=== PATIENT | male | born 1990 | race African-American/Black ===

== ENCOUNTER 2017-01-25 09:58 | Emergency (ER) | payer MEDICAID ==
[2017-01-25] MEDS ORDERED: DEXAMETHASONE 10 MG/ML VIAL PO STA (11:06)
[2017-01-25] MEDS ORDERED: CHERRY SYRUP 10 ML UDC PO ONE ×2 (11:20→11:23)
[2017-01-25] MEDS ORDERED: DEXAMETHASONE 10 MG/ML VIAL ONE ×2 (11:20→11:23)
== END 2017-01-25 11:26 | disposition home or self-care (01) ==
DX: S46.912A Strain of unspecified muscle, fascia and tendon at shoulder and upper arm level, left arm, initial encounter (principal); M62.838 Other muscle spasm; M54.5 Low back pain; X50.3XXA Overexertion from repetitive movements, initial encounter; Y93.89 Activity, other specified; Y92.410 Unspecified street and highway as the place of occurrence of the external cause; G82.20 Paraplegia, unspecified; Z99.3 Dependence on wheelchair
CPT/HCPCS: 99283; A9270

== ENCOUNTER 2018-03-05 10:04 | Emergency (ER) | payer MEDICAID ==
--- NOTE | 2018-03-05 12:44 | ED Physician Documentation ---
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 He is from [facility]. For the last 5 days without specific cause other than that he has had trouble sleeping and anxiety and palpitations and rapid thoughts keeping him up at night. He has a history of alcohol use, but not any year and a half. He also has been on a antidepressant in the past but is not currently. He has plans to see a therapist next week.) Review of Systems Constitutional: denies: Fever, Chills Cardiac: reports: Palpitations. denies: Chest pain / pressure Respiratory: reports: Dyspnea. denies: Cough GI: denies: Abdominal Pain PD PAST MEDICAL HISTORY - Past Medical History Cardiovascular: None Respiratory: None Neuro: Other Endocrine/Autoimmune: None GI: None : Incontinence, Chronic bladder infection HEENT: None Psych: Depression, Anxiety, Post traumatic stress disorder Musculoskeletal: Scoliosis, Chronic back pain Derm: Other drug resistant infections Other Past Medical History: Parapalegic - Past Surgical History Past Surgical History: Yes Ortho: Spine surgery - Present Medications Home Medications: Ambulatory Orders Medication Instructions Recorded Confirmed Wheelchair [Transport Chair] 1 each ONCE #1 each 02/12/15 01/25/17 Ibuprofen [Motrin] 800 mg PO Q8H PRN #30 tablet 10/03/16 01/25/17 Cyclobenzaprine [Flexeril] 10 mg PO TID PRN #20 tablet 01/25/17 HYDROcod/ACETAM 5/325 [[place] 5/325] 1 - 2 ea PO Q6H PRN #15 tablet 01/25/17 Lorazepam [Ativan] 1 mg PO TID PRN #15 tablet 03/05/18 - Allergies Allergies/Adverse Reactions: Allergies Allergy/AdvReac Type Severity Reaction Status Date / Time No Known Drug Allergies Allergy Verified 03/05/18 10:40 - Social History Does the pt smoke?: No Smoking Status: Never smoker Does the pt drink ETOH?: No Does the pt have substance abuse?: No - Immunizations Immunizations are current?: Yes - POLST Patient has POLST: No PD ED PE NORMAL - Vitals Vital signs reviewed: Yes (Unremarkable) - General General: Alert and oriented X 3, No acute distress, Other (He is paraplegic) - HEENT HEENT: PERRL, EOMI - Neck Neck: Supple, no meningeal sign, No bony TTP - Cardiac Cardiac: RRR, No murmur - Respiratory Respiratory: No respiratory distress, Clear bilaterally - Extremities Extremities: No edema, No calf tenderness / cord - Neuro Neuro: Alert and oriented X 3, Normal speech Results - Vitals Vitals: Vital Signs - 24 hr 03/05/18 10:36 Temperature 36.3 C L Heart Rate 88 Respiratory 16 Rate Blood Pressure 127/79 O2 Saturation 99 Oxygen O2 Source Room air - EKG (time done) 1250 Rate: Rate (enter#) (67) Rhythm: NSR [place]: Normal Intervals: Normal IA Ischemia: ST elevation c/w repol. No: ST elevation c/w ischemia Compare to prior EKG: Old EKG unavailable Computer interpretation: Agree with computer Departure - Departure Disposition: 01 Home, Self Care Clinical Impression: Anxiety Condition: Good Record reviewed to determine appropriate education?: Yes Instructions: ED Panic Attack Prescriptions: Lorazepam [Ativan] 1 mg PO TID PRN #15 tablet PRN Reason: Anxiety Comments: Call your doctor to arrange a follow-up appointment, make the next available appointment. In the interim, return anytime if worse or if new symptoms develop. Follow-up with [facility] at [phone] to schedule psychiatric care and counseling.
[2018-03-05 13:11] VITALS: BP 122/80
== END 2018-03-05 13:09 | disposition home or self-care (01) ==
LOC: ED 10:04
DX: F41.9 Anxiety disorder, unspecified (principal); R94.31 Abnormal electrocardiogram [ECG] [EKG]; G82.20 Paraplegia, unspecified
CPT/HCPCS: 93005; 99283; 99284

== ENCOUNTER 2018-04-08 10:43 | Outpatient (CLI) | payer MEDICAID ==
[2018-04-08 13:27] LABS: GLUCOSE, URINE (UA) NEGATIVE (NEGATIVE); KETONES,URINE (UA) TRACE mg/dL (NEGATIVE); LEUKOCYTE ESTERASE, URINE LARGE (NEGATIVE); NITRITE,URINE POSITIVE (NEGATIVE); OCCULT BLOOD,URINE MODERATE (NEGATIVE); PH,URINE 8.5 PH (5.0-7.5); PROTEIN,URINE 100 mg/dL (NEGATIVE); UROBILINOGEN,URINE 1 (NORMAL) E.U./dL (NORMAL)
[2018-04-08 14:20] LABS: BACTERIA,URINE Moderate /HPF (None Seen); BILIRUBIN,URINE NEGATIVE (NEGATIVE); CLARITY,URINE CLOUDY (CLEAR); ICTOTEST,URINE NEGATIVE; RBC,URINE TNTC /HPF (0-5); SQUAMOUS EPITHELIAL CELL,UR NONE SEEN (<= Few)
== END 2018-04-08 10:44 | disposition home or self-care (01) ==
LOC: LAB.R 10:43
PROVIDERS: ATTEND Family Medicine
DX: N30.01 Acute cystitis with hematuria (principal)
CPT/HCPCS: 81001; 87077; 87086

== ENCOUNTER → 2018-12-27 | Outpatient (CLI) | payer MEDICAID ==
[2018-12-27 19:29] LABS: BILIRUBIN,URINE NEGATIVE (NEGATIVE); GLUCOSE, URINE (UA) NEGATIVE (NEGATIVE); KETONES,URINE (UA) NEGATIVE (NEGATIVE); LEUKOCYTE ESTERASE, URINE LARGE (NEGATIVE); NITRITE,URINE NEGATIVE (NEGATIVE); OCCULT BLOOD,URINE LARGE (NEGATIVE); PH,URINE >=9.0 PH (5.0-7.5); PROTEIN,URINE >=300 mg/dL (NEGATIVE); UROBILINOGEN,URINE 0.2 (NORMAL) E.U./dL (NORMAL)
[2018-12-27 19:40] LABS: BACTERIA,URINE Rare /HPF (None Seen); CLARITY,URINE BLOODY (CLEAR); CRYSTALS,URINE 0-2 Triple Phosphate /LPF; MUCUS,URINE Marked Strands; RBC,URINE TNTC /HPF (0-5); SQUAMOUS EPITHELIAL CELL,UR NONE SEEN (<= Few)
== END ==
LOC: LAB.R 08:00
PROVIDERS: ATTEND Physician Assistant Medical
DX: I10 Essential (primary) hypertension (principal)
CPT/HCPCS: 81001; 87077; 87086; 87181

== ENCOUNTER 2019-02-24 15:33 | Outpatient (CLI) | payer MEDICAID | END 2019-02-24 15:34 | disposition critical access hospital (66) | LOC: EMS 15:33 | PROVIDERS: ATTEND Surgery | DX: R50.9 Fever, unspecified (principal); M54.5 Low back pain | CPT/HCPCS: A0425; A0429; A0999 ==

== ENCOUNTER 2019-02-24 15:54 | Inpatient (IN) | payer MEDICAID ==
[2019-02-24 16:41] LABS: ALBUMIN 3.9 g/dL (3.2-5.5); BILIRUBIN,TOTAL 0.8 mg/dL (0.2-1.0); CREATININE 0.4 mg/dL (0.6-1.2)
[2019-02-24 16:42] LABS: BASOPHILS % (AUTO) 0.5 %; EOSINOPHILS % (AUTO) 0.5 %; LYMPHOCYTES # (AUTO) 2.3 10^3/uL (1.5-3.5); LYMPHOCYTES % (AUTO) 29.9 %; MEAN CORPUSCULAR HEMOGLOBIN 15.8 pg (27.0-31.0); MEAN CORPUSCULAR HGB CONC 29.1 g/dL (32.0-36.0); MEAN CORPUSCULAR VOLUME 54.2 fL (80.0-94.0); MEAN PLATELET VOLUME 8.2 fL (7.4-11.4); MONOCYTES # (AUTO) 0.5 10^3/uL (0.0-1.0); NEUTROPHILS # (AUTO) 4.7 10^3/uL (1.5-6.6); NEUTROPHILS % (AUTO) 62.1 %; PLT - PLATELET COUNT 335 10^3/uL (130-450); RED BLOOD COUNT 3.97 10^6/uL (4.70-6.10); RED CELL DISTRIBUTION WIDTH 24.1 % (12.0-15.0); WHITE BLOOD COUNT 7.6 x10^3/uL (4.8-10.8)
--- NOTE | 2019-02-24 16:44 | ED Physician Documentation ---
PD HPI MALE - Stated complaint Stated Complaint: BED SORES - Chief complaint Chief Complaint: Fever - History obtained from History obtained from: Patient - History of Present Illness Timing - onset: How many days ago (noted some redness and ulceration left lateral hip just the past few days. Also feeling some chills and general malaise the past 1-2 days and noted some cloudiness of urine.) Timing - duration: Days Timing - details: Gradual onset, Still present Associated symptoms: Dysuria. No: Scrotal swelling Similar symptoms before: Diagnosis (had had ulcers that are slow healing; has not had new one for awhile. Has had occasional UTIs.) Recently seen: Not recently seen Review of Systems Constitutional: reports: Chills, Myalgias. denies: Fever Nose: denies: Rhinorrhea / runny nose, Congestion Throat: denies: Sore throat Cardiac: denies: Chest pain / pressure Respiratory: denies: Cough GI: reports: Nausea. denies: Abdominal Pain, Vomiting, Diarrhea : reports: Dysuria, Frequency Skin: denies: Rash, Lesions Neurologic: denies: Generalized weakness, Focal weakness, Numbness PD PAST MEDICAL HISTORY - Past Medical History Cardiovascular: None Respiratory: None Endocrine/Autoimmune: None GI: None : Incontinence, Chronic bladder infection HEENT: None Psych: Depression, Anxiety, Post traumatic stress disorder Musculoskeletal: Scoliosis, Chronic back pain Derm: Other drug resistant infections - Past Surgical History Past Surgical History: Yes Ortho: Spine surgery - Present Medications Home Medications: Ambulatory Orders Medication Instructions Recorded Confirmed No Known Home Medications 02/24/19 02/24/19 - Allergies Allergies/Adverse Reactions: Allergies Allergy/AdvReac Type Severity Reaction Status Date / Time No Known Drug Allergies Allergy Verified 03/05/18 10:40 - Social History Does the pt smoke?: No Smoking Status: Never smoker Does the pt drink ETOH?: No Does the pt have substance abuse?: No - Immunizations Immunizations are current?: Yes - POLST Patient has POLST: No PD ED PE NORMAL - Vitals Vital signs reviewed: Yes - General General: Alert and oriented X 3, No acute distress, Well developed/nourished - HEENT HEENT: Ears normal, Pharynx benign - Neck Neck: Supple, no meningeal sign, No adenopathy - Cardiac Cardiac: RRR, No murmur - Respiratory Respiratory: Clear bilaterally - Abdomen Abdomen: Soft, Non tender - Rectal Rectal: Other (brown soft stool in vault, guiac negative. ) - Back Back: No CVA TTP - Derm Derm: Warm and dry, Other (The left lateral hip at the trochanter shows an area of redness and inflammation with some fluctuance. There is a stage III ulcer about 2 cm diameter over that site. Patient has general leg wasting and muscle atrophy consistent with long-term paralysis. He has a chronic noninfected deep ulcer at the sacrum area with some thickened skin noted at the edge.) - Neuro Neuro: Alert and oriented X 3, Normal speech Results - Vitals Vitals: Vital Signs - 24 hr 02/24/19 02/24/19 02/24/19 16:19 17:26 18:10 Temperature 37.3 C Heart Rate 106 H 87 86 Respiratory 20 18 18 Rate Blood Pressure 138/71 H 116/70 121/68 O2 Saturation 100 100 100 Oxygen O2 Source Room air - Labs Labs: Laboratory Tests 02/24/19 02/24/19 02/24/19 16:03 16:20 16:20 WBC 7.6 RBC 3.97 L Hgb 6.3 L* Hct 21.5 L MCV 54.2 L MCH 15.8 L MCHC 29.1 L RDW 24.1 H Plt Count 335 MPV 8.2 Reticulocyte % (Auto) Neut # (Auto) 4.7 Lymph # (Auto) 2.3 [place] # (Auto) 0.5 Eos # (Auto) 0.0 Baso # (Auto) 0.0 Absolute Nucleated RBC 0.00 Nucleated RBC % 0.1 Manual Slide Review Indicated Platelet Estimate NORMAL (130-450,000) Platelet Morphology NORMAL APPEARANCE RBC Morph Micro Appear 1+ SCHISTOCYTES Absolute Retic Sodium 134 L Potassium 3.7 Chloride 102 Carbon Dioxide 21 Anion Gap 11.0 BUN 20 Creatinine 0.4 L Estimated GFR (MDRD) 308 Glucose 90 Lactic Acid Calcium 9.0 Iron TIBC Transferrin Ferritin Total Bilirubin 0.8 AST 16 ALT 13 Alkaline Phosphatase 55 Lactate Dehydrogenase Total Protein 8.0 Albumin 3.9 Globulin 4.1 Albumin/Globulin Ratio 1.0 Lipase 33 Vitamin B12 Urine Color BROWN Urine Clarity CLOUDY Urine pH 7.5 Ur Specific [place] 1.020 Urine Protein 100 H Urine Glucose (UA) NEGATIVE Urine Ketones NEGATIVE Urine Occult Blood LARGE H Urine Nitrite POSITIVE H Urine Bilirubin NEGATIVE Urine Urobilinogen 0.2 (NORMAL) Ur Leukocyte Esterase MODERATE H Urine RBC 11-25 H Urine WBC >25 H Urine WBC Clumps PRESENT Ur Squamous Epith Cells RARE Squamous Urine Crystals 3-5 Triple Phosphate Urine Bacteria Many H Urine Yeast PRESENT Ur Microscopic Review INDICATED Urine Culture Comments INDICATED Influenza A (Rapid) Influenza B (Rapid) Blood Type Antibody Screen Crossmatch IS Only 02/24/19 02/24/19 02/24/19 16:20 16:20 16:20 WBC RBC 3.99 L Hgb Hct MCV MCH MCHC RDW Plt Count MPV Reticulocyte % (Auto) 2.34 H Neut # (Auto) Lymph # (Auto) [place] # (Auto) Eos # (Auto) Baso # (Auto) Absolute Nucleated RBC Nucleated RBC % Manual Slide Review Platelet Estimate Platelet Morphology RBC Morph Micro Appear Absolute Retic 0.093 Sodium Potassium Chloride Carbon Dioxide Anion Gap BUN Creatinine Estimated GFR (MDRD) Glucose Lactic Acid 0.9 Calcium Iron < 6 L TIBC 386 Transferrin 276 Ferritin Total Bilirubin AST ALT Alkaline Phosphatase Lactate Dehydrogenase Total Protein Albumin Globulin Albumin/Globulin Ratio Lipase Vitamin B12 Urine Color Urine Clarity Urine pH Ur Specific [place] Urine Protein Urine Glucose (UA) Urine Ketones Urine Occult Blood Urine Nitrite Urine Bilirubin Urine Urobilinogen Ur Leukocyte Esterase Urine RBC Urine WBC Urine WBC Clumps Ur Squamous Epith Cells Urine Crystals Urine Bacteria Urine Yeast Ur Microscopic Review Urine Culture Comments Influenza A (Rapid) Influenza B (Rapid) Blood Type Antibody Screen Crossmatch IS Only 02/24/19 02/24/19 02/24/19 16:20 16:20 17:22 WBC RBC Hgb Hct MCV MCH MCHC RDW Plt Count MPV Reticulocyte % (Auto) Neut # (Auto) Lymph # (Auto) [place] # (Auto) Eos # (Auto) Baso # (Auto) Absolute Nucleated RBC Nucleated RBC % Manual Slide Review Platelet Estimate Platelet Morphology RBC Morph Micro Appear Absolute Retic Sodium Potassium Chloride Carbon Dioxide Anion Gap BUN Creatinine Estimated GFR (MDRD) Glucose Lactic Acid Calcium Iron TIBC Transferrin Ferritin 9.7 L Total Bilirubin AST ALT Alkaline Phosphatase Lactate Dehydrogenase 141 Total Protein Albumin Globulin Albumin/Globulin Ratio Lipase Vitamin B12 548 Urine Color Urine Clarity Urine pH Ur Specific [place] Urine Protein Urine Glucose (UA) Urine Ketones Urine Occult Blood Urine Nitrite Urine Bilirubin Urine Urobilinogen Ur Leukocyte Esterase Urine RBC Urine WBC Urine WBC Clumps Ur Squamous Epith Cells Urine Crystals Urine Bacteria Urine Yeast Ur Microscopic Review Urine Culture Comments Influenza A (Rapid) Negative Influenza B (Rapid) Negative Blood Type Antibody Screen Crossmatch IS Only 02/24/19 18:04 WBC RBC Hgb Hct MCV MCH MCHC RDW Plt Count MPV Reticulocyte % (Auto) Neut # (Auto) Lymph # (Auto) [place] # (Auto) Eos # (Auto) Baso # (Auto) Absolute Nucleated RBC Nucleated RBC % Manual Slide Review Platelet Estimate Platelet Morphology RBC Morph Micro Appear Absolute Retic Sodium Potassium Chloride Carbon Dioxide Anion Gap BUN Creatinine Estimated GFR (MDRD) Glucose Lactic Acid Calcium Iron TIBC Transferrin Ferritin Total Bilirubin AST ALT Alkaline Phosphatase Lactate Dehydrogenase Total Protein Albumin Globulin Albumin/Globulin Ratio Lipase Vitamin B12 Urine Color Urine Clarity Urine pH Ur Specific [place] Urine Protein Urine Glucose (UA) Urine Ketones Urine Occult Blood Urine Nitrite Urine Bilirubin Urine Urobilinogen Ur Leukocyte Esterase Urine RBC Urine WBC Urine WBC Clumps Ur Squamous Epith Cells Urine Crystals Urine Bacteria Urine Yeast Ur Microscopic Review Urine Culture Comments Influenza A (Rapid) Influenza B (Rapid) Blood Type A POSITIVE Antibody Screen NEGATIVE Crossmatch IS Only See Detail Procedures - Abscess I&D (location) left hip Preparation: Confirmed with ultrasound (He has a 2 cm area of stage III decubitus ulcer. There is some fluctuant area however and a small point of drainage with clear yellow to cloudy fluid. Ultrasound shows some fluid collection under the skin.), Lidocaine 1%, With epi Incision: Incised with scalpel, Purulent drainage (It was turbid yellow fluid and not adam pus.), Irrigated, Culture obtained. No: Packed Other: Pt tolerated well PD MEDICAL DECISION MAKING - ED course Complexity details: reviewed results (He has profound anemia with a hemoglobin of 6.5. His indices show likely severe iron deficiency. He states he does get some hematuria occasionally in particular with infections. He denies any melena. He is guaiac negative on rectal exam. He is low enough to need transfusion however.), re-evaluated patient (He has several processes going on. Primarily is signs of infection with a feeling of chills. He does have a UTI. He also has a pressure ulcer on the left lateral hip with some abscess formation under it which is incised and drained here in the ER. Both of these could be the cause of the general chills feeling. He is given ceftriaxone and Bactrim as treatment for both. He does have the significant anemia and will transfuse a couple of units of blood. This is likely iron deficiency. There may be some mild chronic blood loss with hematuria. There is no apparent GI loss.), considered differential, d/w patient Departure - Departure Disposition: [facility] DC/Xfer Clinical Impression: Wound abscess, Severe anemia Decubitus ulcer, hip Qualifiers: Pressure injury stage: unstageable Laterality: left Qualified Code(s): L89.220 - Pressure ulcer of left hip, unstageable Fatigue Qualifiers: Fatigue type: unspecified Qualified Code(s): R53.83 - Other fatigue UTI (urinary tract infection) Qualifiers: Urinary tract infection type: acute cystitis Hematuria presence: with hematuria Qualified Code(s): N30.01 - Acute cystitis with hematuria Condition: Stable Record reviewed to determine appropriate education?: Yes Discharge Date/Time: 02/24/19 19:56
[2019-02-24 16:50] LABS: HGB - HEMOGLOBIN 6.3 g/dL (14.0-18.0)
[2019-02-24 17:40] LABS: BILIRUBIN,URINE NEGATIVE (NEGATIVE); GLUCOSE, URINE (UA) NEGATIVE (NEGATIVE); KETONES,URINE (UA) NEGATIVE (NEGATIVE); LEUKOCYTE ESTERASE, URINE MODERATE (NEGATIVE); NITRITE,URINE POSITIVE (NEGATIVE); OCCULT BLOOD,URINE LARGE (NEGATIVE); PH,URINE 7.5 PH (5.0-7.5); PROTEIN,URINE 100 mg/dL (NEGATIVE); UROBILINOGEN,URINE 0.2 (NORMAL) E.U./dL (NORMAL)
[2019-02-24] MEDS ORDERED: SULFAMETH/TRIMETH DS 800/160 MG TABLET PO STA (17:49)
[2019-02-24] MEDS ORDERED: cefTRIAXone 1 GM VIAL IVP STA (17:49)
[2019-02-24 17:50] LABS: CLARITY,URINE CLOUDY (CLEAR)
[2019-02-24 17:53] LABS: BACTERIA,URINE Many /HPF (None Seen); CRYSTALS,URINE 3-5 Triple Phosphate /LPF; SQUAMOUS EPITHELIAL CELL,UR RARE Squamous (<= Few); WBC CLUMPS,URINE PRESENT; YEAST,URINE PRESENT
[2019-02-24 18:09] LABS: PLATELET ESTIMATE, MANUAL NORMAL (130-450,000) (NORMAL); PLATELET MORPHOLOGY NORMAL APPEARANCE (NORMAL)
[2019-02-24 18:11] LABS: ABSOLUTE RETICS # AUTO 0.093 10^6/uL (0.020-0.110); MEAN RETIC VALUE 95.1; RED BLOOD COUNT 3.99 10^6/uL (4.70-6.10)
[2019-02-24] MEDS ORDERED: SODIUM CHLORIDE 0.9% 1,000 ML IV ONE (18:22)
[2019-02-24 18:30] LABS: FERRITIN 9.7 ng/mL (23.9-336.2)
[2019-02-24 19:56] LABS: IRON < 6 ug/dL (45-182); TOTAL IRON BINDING CAPACITY 386 ug/dL (250-450); TRANSFERRIN 276 mg/dL (180-329)
[2019-02-24] MEDS: HYDROcod/ACETAM 5/325 MG TABLET PO PRN (21:10)
--- NOTE | 2019-02-24 22:44 | HISTORY & PHYSICAL EXAMINATION ---
Chief Complaint - Chief Complaint Chief Complaint: left hip pain, feverish History of Present Illness - Admitted From Admitted From:: [facility] ED - History Obtained From Records Reviewed: yes History obtained from: patient, chart, ED physician - History of Present Illness HPI Comment/Other: Patient is a 28 y/o male who is paraplegic and presents to the ED with complain of new onset right hip pain and feeling feverish. He resides at [facility] where his temperature was noted to be 101F. He has chronic unstageable sacral decubitus ulcer on the right which appears to be tracking. He has had this since 2004. However the soreness on the right is new. In the ED about 4-5 cc of cloudy fluid which had a smell to it was aspirated from the hip and sent for culture. Further work up included a UA which was highly suggestive of an infection. He was also found to have a hemoglobin of 6 with a previous reading of 14. He reports blood in his urine lately for which he saw his PCP. He was guaiac negative in the ED. He denies chest pain, GA, abd pain, nausea or vomiting. His lower extremities are atrophic. He gets around using a wheelchair after t ransferring using a paraslider. He is paraplegic from a surgical complication to remove a spinal tumor done in his home country of [facility]. History - Past Medical History Cardiovascular: reports: None Respiratory: reports: None Endocrine/Autoimmune: reports: None GI: reports: Other : reports: Incontinence, Chronic bladder infection HEENT: reports: None Psych: reports: Depression, Anxiety, Post traumatic stress disorder Musculoskeletal: reports: Scoliosis, Chronic back pain Derm: reports: Other drug resistant infections MRSA Hx?: Yes Other Past Medical History: Incontience, paraplegic - Past Surgical History Ortho: reports: Spine surgery - POLST Patient has POLST: No Meds/Allgy - Home Medications Home Medications: Ambulatory Orders Medication Instructions Recorded Confirmed No Known Home Medications 02/24/19 02/24/19 - Allergies Allergies/Adverse Reactions: Allergies Allergy/AdvReac Type Severity Reaction Status Date / Time No Known Drug Allergies Allergy Verified 03/05/18 10:40 Review of Systems - Constitutional Constitutional: reports: Fever. denies: Malaise, Weakness, Poor appetite, Ling phoresis - Eyes Eyes: denies: Blurred vision, Vision loss, Dipolpia - Ears, Nose & Throat Ears, Nose & Throat: denies: Nasal pain, Nasal discharge, Sore throat, Hoarseness - Cardiovascular Cariovascular: denies: Irregular heart rate, Chest pain, Edema - Respiratory Respiratory: denies: Cough, Wheezing, SOB at rest, SOB with exertion - Gastrointestinal Gastrointestinal: denies: Abdominal pain, Change in bowel habits, Rectal bleeding, Nausea, Vomiting - Genitourinary Genitourinary: reports: Hematuria, Incontinence. denies: Dysuria, Frequency, Urgency, Flank pain - Musculoskeletal Musculoskeletal: reports: Back pain (chronic), Other (right hip pain) - Integumentary Integumentary: reports: Lesions (sacral decubitus ulcers). denies: Rash, Pruritis - Neurological Neurological: reports: Other (paraplegic) - Psychiatric Psychiatric: reports: Depression, Anxiety - Hematologic/Lymphatic Hematologic/Lymphatic: reports: Anemia. denies: Bruising, Petechiae Prior Level of Functionality: Resides at [facility]. Patient is paraplegic. Gets around using a wheelchair. Transfers unto chair with a paraslider Exam - Vital Signs Vital Signs: Vital Signs x48h Temp Pulse Pulse Resp BP BP Pulse Ox 02/24/19 21:51 37.4 C 94 15 121/79 02/24/19 21:37 36.9 C 93 16 120/71 02/24/19 20:00 37 C 89 18 124/74 99 02/24/19 19:08 36.6 C 94 16 119/71 100 02/24/19 18:10 86 18 121/68 100 02/24/19 17:26 87 18 116/70 100 02/24/19 16:19 37.3 C 106 H 20 138/71 H 100 - Physical Exam General Appearance: positive: Alert, Moderate distress Eyes Bilateral: positive: Normal inspection, PERRL, EOMI. negative: Conjunctivae nml, No scleral icterus ENT: positive: ENT inspection nml, No signs of dehydration Neck: positive: Nml inspection, No JVD, Trachea midline Respiratory: positive: Chest non-tender, No respiratory distress, Breath sounds nml. negative: Wheezes, Rales, Rhonchi Cardiovascular: positive: Regular rate & rhythm, No murmur, No gallop Abdomen: positive: Non-tender, No organomegaly, Nml bowel sounds Rectal: positive: Stool - heme NEG. negative: Black stool Back: positive: Other (scoliosis with evidence of previous surgery) Skin: positive: Color nml, No rash, Warm (unstageable), Decubitus Extremities: positive: Other (atrophic 2/2 paraplegia) Neurologic/Psychiatric: positive: Oriented x3, Other (paraplegic) Sepsis Event Note (H) - Evaluation Current Stage of Sepsis: Sepsis Possible source of Sepsis: positive: Genitourinary, Skin/soft tissue Conclusion/Plan - Problem List (1) Abscess of right hip Conclusion/Plan: s/p drainage with cultures sent Patient started on bactrim DS. Will continue (2) Decubitus ulcer, hip Qualifiers: Pressure injury stage: unstageable Laterality: left Qualified Code(s): L89.220 - Pressure ulcer of left hip, unstageable (3) UTI (urinary tract infection) Conclusion/Plan: Hx of frequent infections Urine culture pending Patient on rocephin Qualifiers: Urinary tract infection type: site unspecified Hematuria presence: with hematuria Qualified Code(s): N39.0 - Urinary tract infection, site not specified; R31.9 - Hematuria, unspecified (4) Severe anemia Conclusion/Plan: Asymptomatic. Suspect Iron Deficiency Anemia Given microcytic and hypochromic Guaiac negative 2 units PRBC being transfused Will place patient on iron supplements upon discharge If anemia persists, patient may need further work up outpatient (5) Chronic back pain Conclusion/Plan: From scoliosis [place] and morphine ordered for pain management - Lab Results Fish Bones: 02/24/19 16:20 02/24/19 16:20
[2019-02-24] MEDS: SODIUM CHLORIDE FLUSH 0.9% 10 ML SYRINGE IVP SCH (22:52)
[2019-02-24] MEDS: MORPHINE 2 MG/ML SYRINGE IVP PRN (22:52)
[2019-02-25] MEDS: HYDROcod/ACETAM 5/325 MG TABLET PO PRN ×3 (01:18→12:12)
[2019-02-25] MEDS: SODIUM CHLORIDE FLUSH 0.9% 10 ML SYRINGE IVP PRN ×2 (04:18→23:59)
[2019-02-25] MEDS: MORPHINE 2 MG/ML SYRINGE IVP PRN ×3 (04:18→19:48)
[2019-02-25 06:30] LABS: BASOPHILS % (AUTO) 0.7 %; EOSINOPHILS % (AUTO) 0.5 %; HGB - HEMOGLOBIN 8.8 g/dL (14.0-18.0); MEAN CORPUSCULAR HGB CONC 30.4 g/dL (32.0-36.0); MEAN CORPUSCULAR VOLUME 62.7 fL (80.0-94.0); MEAN PLATELET VOLUME 8.2 fL (7.4-11.4); MONOCYTES % (AUTO) 6.8 %; PLT - PLATELET COUNT 284 10^3/uL (130-450); RED CELL DISTRIBUTION WIDTH 32.1 % (12.0-15.0)
[2019-02-25 06:31] LABS: CALCIUM 8.7 mg/dL (8.5-10.3); CREATININE 0.4 mg/dL (0.6-1.2)
[2019-02-25] MEDS: SODIUM CHLORIDE FLUSH 0.9% 10 ML SYRINGE IVP SCH ×3 (07:45→19:48)
[2019-02-25] MEDS: PANTOPRAZOLE 40 MG VIAL IVP SCH (07:45)
[2019-02-25 07:51] LABS: ABNORMAL LYMPHS % (MANUAL) 0 %
[2019-02-25 07:53] LABS: BAND NEUTROPHILS % (MANUAL) 2 %; BASOPHILS # (MANUAL) 0.1 10^3/uL (0-0.1); BASOPHILS % (MANUAL) 1 %; LYMPHOCYTES # (MANUAL) 0.9 10^3/uL (1.5-3.5); LYMPHOCYTES % (MANUAL) 10 %; MONOCYTES # (MANUAL) 0.6 10^3/uL (0.0-1.0); NEUTROPHILS # (MANUAL) 7.4 10^3/uL (1.5-6.6); NEUTROPHILS % (MANUAL) 80 %
[2019-02-25 07:57] LABS: DIFFERENTIAL COMMENT MANUAL DIFFERENTIAL; PLATELET ESTIMATE, MANUAL NORMAL (130-450,000) (NORMAL); PLATELET MORPHOLOGY 1+ GIANT PLATELETS (NORMAL)
[2019-02-25] MEDS ORDERED: SODIUM CHLORIDE 0.9% 500 ML IV ONE (08:22)
[2019-02-25] MEDS: POLYETHYLENE GLYCOL 3350 17 GM PACKET PO SCH (08:22)
[2019-02-25] MEDS: cefTRIAXone 1 GM in SODIUM CHLORIDE 0.9% MINIBAG 100 ML IV SCH (08:23)
[2019-02-25] MEDS ORDERED: SULFAMETH/TRIMETH DS 800/160 MG TABLET PO SCH (09:00)
[2019-02-25] MEDS: FERROUS GLUCONATE 324 MG TABLET PO SCH (10:24)
--- NOTE | 2019-02-25 13:15 | PROVIDER PROGRESS NOTE ---
Assessment/Plan - Problem List (1) Decubitus ulcer, hip Qualifiers: Pressure injury stage: unstageable Laterality: left Qualified Code(s): L89.220 - Pressure ulcer of left hip, unstageable Assessment/Plan: Fever today. The wound fluid, which was taken yesterday by the ER MD, is growing Staph aureus, unknown if it is MRSA or not. He was put on empiric po Bacrim by admitting Front End Ui Developer. I will change to iv Clindamycin. Wound consult needed for advice. (2) Infection due to Staphylococcus aureus Assessment/Plan: As above. (3) Dermal sinus tract of lumbosacral region Assessment/Plan: He had an old decubitus ulcer of R hip, that has developed a sinus tract that has epithelialized, but the surrounding skin has some sloughing. Will request a wound consult for this hip site as well. (4) UTI (urinary tract infection), bacterial Assessment/Plan: Had a fever today. Gram neg are growing in UTI, per the gram stain. await culture resukts and MICs. Currently he is on Ceftriaxone iv for this. Will need a 3 week course. Will do abdominal imaging to evaluate for pyelonephritis or stones. (5) Microcytic hypochromic anemia Assessment/Plan: He received transfusion of 2 Units PRBCs and Hgb has improved to 8.8. Stool was heme neg in ER. The serum results, taken before blood transfusion was started, shows severe Iron deficiency. Will begin oral Iron replacement. Follow CBC daily. (6) Paraplegic spinal paralysis Assessment/Plan: Chronic condition. The patient has requested more help atn the facility and an electric wheelchair. This was passed on to Coil Inspector. - Current Meds Current Meds: Current Medications Generic Name Dose Route Start Last Admin Trade Name Freq PRN Reason Stop Dose Admin Hydrocodone Bitart/Acetaminophen 1 tab 02/24/19 20:31 02/25/19 12:12 [place] 5/325 PO 1 tab Q4HR PRN Administration Pain 5 to 7 Ferrous Gluconate 324 mg 02/25/19 09:00 02/25/19 10:24 Fergon PO 324 mg DAILYWM WILFRID Administration Ceftriaxone Sodium 1 gm/ 100 mls @ 200 mls/hr 02/25/19 09:00 02/25/19 09:00 Sodium Chloride IV Infused DAILY WILFRID Infusion Morphine Sulfate 2 mg 02/24/19 22:07 02/25/19 07:45 Morphine IVP 2 mg Q3H PRN Administration PAIN Pantoprazole Sodium 40 mg 02/25/19 07:00 02/25/19 07:45 Protonix IVP 40 mg QDAC WILFRID Administration Polyethylene Glycol 17 gm 02/25/19 09:00 02/25/19 08:22 Miralax PO 17 gm DAILY WILFRID Administration Sodium Chloride 10 ml 02/24/19 20:31 02/25/19 04:18 Normal Saline Flush 0.9% IVP 10 ml PRN PRN Administration NEEDED PER PROVIDER ORDERS Sodium Chloride 10 ml 02/25/19 01:00 02/25/19 07:45 Normal Saline Flush 0.9% IVP 10 ml 0100,0900,1700 WILFRID Administration Trimethoprim/Sulfamethoxazole 1 tab 02/25/19 09:00 02/25/19 08:23 Bactrim Ds 800/160 PO 1 tab BID WILFRID Administration - Lab Result Fish Bone Diagrams: 02/25/19 06:10 02/25/19 06:10 - Additional Planning My Orders: My Active Orders 02/24/19 19:50 CULTURE, BLOOD #1 [RM] Stat 02/24/19 Dinner DIET [Regular Diet] [DIET] 02/25/19 09:00 Ferrous Gluconate [Fergon] 324 mg PO DAILYWM 02/25/19 13:12 Acetaminophen [Tylenol] 650 mg PO Q4HR PRN Subjective - Subjective Patient Reports: Feeling Better, Resting Comfortably Nursing Reports: Other (Fever to 102.3 F today) Objective Vital Signs: Vital Signs - 24 hr 02/24/19 02/24/19 02/24/19 16:19 17:26 18:10 Temperature 37.3 C Heart Rate 106 H 87 86 Heart Rate [ Monitoring electrodes] Respiratory 20 18 18 Rate Blood Pressure 138/71 H 116/70 121/68 Blood Pressure [Right Brachial artery] O2 Saturation 100 100 100 02/24/19 02/24/19 02/24/19 19:08 20:00 20:50 Temperature 36.6 C 37 C 37.3 C Heart Rate 94 89 Heart Rate [ 89 Monitoring electrodes] Respiratory 16 18 18 Rate Blood Pressure 119/71 Blood Pressure 124/74 [Right Brachial artery] O2 Saturation 100 99 100 02/24/19 02/24/1902/24/19 21:37 21:51 23:00 Temperature 36.9 C 37.4 C 37.3 C Heart Rate 93 94 Heart Rate [ 97 Monitoring electrodes] Respiratory 16 15 17 Rate Blood Pressure 120/71 121/79 Blood Pressure 120/79 [Right Brachial artery] O2 Saturation 02/25/19 02/25/19 02/25/19 00:00 01:00 01:13 Temperature 37.3 C 37.3 C Heart Rate 84 84 Heart Rate [ 87 Monitoring electrodes] Respiratory 15 14 14 Rate Blood Pressure 106/62 106/62 Blood Pressure 106/67 [Right Brachial artery] O2 Saturation 02/25/19 02/25/19 02/25/19 01:28 04:40 04:43 Temperature 37.1 C 37.3 C 37.3 C Heart Rate 75 82 Heart Rate [ 86 Monitoring electrodes] Respiratory 15 16 15 Rate Blood Pressure 101/70 108/76 Blood Pressure 108/76 [Right Brachial artery] O2 Saturation 100 02/25/19 02/25/19 07:39 12:07 Temperature 37.5 C 102.3 C H Heart Rate Heart Rate [ 90 106 H Monitoring electrodes] Respiratory 20 16 Rate Blood Pressure Blood Pressure 96/54 L 95/56 L [Right Brachial artery] O2 Saturation 100 100 Oxygen O2 Source Room air I&O (Last 24 Hrs): Intake and Output Totals x24h 02/23/19 02/24/19 02/25/19 23:59 23:59 23:59 Intake Total 0 1870 Balance 0 1870 General: Alert, Oriented x3 HEENT: Mucous membr. moist/pink Neck: Supple Neuro: Other (Paraplegic) Cardiovascular: Regular rate Respiratory: No respiratory distress Abdomen: Other (Pt was laying on his stomach, abd not examined) Extremities: Other ([place] covered) - Results Results: Laboratory Results WBC 9.0 x10^3/uL (4.8-10.8) 02/25/19 06:10 RBC 4.60 10^6/uL (4.70-6.10) L 02/25/19 06:10 Hgb 8.8 g/dL (14.0-18.0) L 02/25/19 06:10 Hct 28.8 % (42.0-52.0) L 02/25/19 06:10 MCV 62.7 fL (80.0-94.0) L 02/25/19 06:10 MCH 19.0 pg (27.0-31.0) L 02/25/19 06:10 MCHC 30.4 g/dL (32.0-36.0) L 02/25/19 06:10 RDW 32.1 % (12.0-15.0) H 02/25/19 06:10 Plt Count 284 10^3/uL (130-450) 02/25/19 06:10 MPV 8.2 fL (7.4-11.4) 02/25/19 06:10 Reticulocyte % (Auto) 2.34 % (0.5-2.3) H 02/24/19 16:20 Neut # (Auto) Not Reportable 02/25/19 06:10 Lymph # (Auto) Not Reportable 02/25/19 06:10 [place] # (Auto) Not Reportable 02/25/19 06:10 Eos # (Auto) Not Reportable 02/25/19 06:10 Baso # (Auto) Not Reportable 02/25/19 06:10 Absolute Nucleated RBC Not Reportable 02/25/19 06:10 Total Counted 100 02/25/19 06:10 Band Neuts % (Manual) 2 % (0-10) 02/25/19 06:10 Abnorm Lymph % (Manual) 0 % 02/25/19 06:10 Nucleated RBC % Not Reportable 02/25/19 06:10 Neutrophils # (Manual) 7.4 10^3/uL (1.5-6.6) H 02/25/19 06:10 Lymphocytes # (Manual) 0.9 10^3/uL (1.5-3.5) L 02/25/19 06:10 Monocytes # (Manual) 0.6 10^3/uL (0.0-1.0) 02/25/19 06:10 Eosinophils # (Manual) 0.0 10^3/uL (0-0.7) 02/25/19 06:10 Basophils # (Manual) 0.1 10^3/uL (0-0.1) 02/25/19 06:10 Differential Comment MANUAL DIFFERENTIAL 02/25/19 06:10 Manual Slide Review Indicated 02/25/19 06:10 WBC Morphology NORMAL APPEARANCE (NORMAL) 02/25/19 06:10 Platelet Estimate NORMAL (130-450,000) (NORMAL) 02/25/19 06:10 Platelet Morphology 1+ GIANT PLATELETS (NORMAL) 02/25/19 06:10 RBC Morph Micro Appear 3+ ANISOCYTOSIS (NORMAL) 2+ POIKILOCYTOSIS (NORMAL) 3+ HYPOCHROMASIA (NORMAL) 2+ MICROCYTOSIS (NORMAL) 1+ TEARDROP CELLS (NORMAL) 1+ OVALOCYTES (NORMAL) 1+ SCHISTOCYTES (NORMAL) 02/24/19 16:20 RBC Morph Micro Appear 3+ ANISOCYTOSIS (NORMAL) 2+ POIKILOCYTOSIS (NORMAL) 3+ HYPOCHROMASIA (NORMAL) 2+ MICROCYTOSIS (NORMAL) 1+ TEARDROP CELLS (NORMAL) 1+ OVALOCYTES (NORMAL) 1+ SCHISTOCYTES (NORMAL) 02/24/19 16:20 RBC Morph Micro Appear 3+ ANISOCYTOSIS (NORMAL) 2+ POIKILOCYTOSIS (NORMAL) 3+ HYPOCHROMASIA (NORMAL) 2+ MICROCYTOSIS (NORMAL) 1+ TEARDROP CELLS (NORMAL) 1+ OVALOCYTES (NORMAL) 1+ SCHISTOCYTES (NORMAL) 02/24/19 16:20 RBC Morph Micro Appear 3+ ANISOCYTOSIS (NORMAL) 2+ POIKILOCYTOSIS (NORMAL) 3+ HYPOCHROMASIA (NORMAL) 2+ MICROCYTOSIS (NORMAL) 1+ TEARDROP CELLS (NORMAL) 1+ OVALOCYTES (NORMAL) 1+ SCHISTOCYTES (NORMAL) 02/24/19 16:20 RBC Morph Micro Appear 3+ ANISOCYTOSIS (NORMAL) 2+ POIKILOCYTOSIS (NORMAL) 3+ HYPOCHROMASIA (NORMAL) 2+ MICROCYTOSIS (NORMAL) 1+ TEARDROP CELLS (NORMAL) 1+ OVALOCYTES (NORMAL) 1+ SCHISTOCYTES (NORMAL) 02/24/19 16:20 RBC Morph Micro Appear 3+ ANISOCYTOSIS (NORMAL) 2+ POIKILOCYTOSIS (NORMAL) 3+ HYPOCHROMASIA (NORMAL) 2+ MICROCYTOSIS (NORMAL) 1+ TEARDROP CELLS (NORMAL) 1+ OVALOCYTES (NORMAL) 1+ SCHISTOCYTES (NORMAL) 02/24/19 16:20 RBC Morph Micro Appear 3+ ANISOCYTOSIS (NORMAL) 2+ HYPOCHROMASIA (NORMAL) 2+ MICROCYTOSIS (NORMAL) 1+ POLYCHROMASIA (NORMAL) 02/25/19 06:10 RBC Morph Micro Appear 3+ ANISOCYTOSIS (NORMAL) 2+ HYPOCHROMASIA (NORMAL) 2+ MICROCYTOSIS (NORMAL) 1+ POLYCHROMASIA (NORMAL) 02/25/19 06:10 RBC Morph Micro Appear 3+ ANISOCYTOSIS (NORMAL) 2+ HYPOCHROMASIA (NORMAL) 2+ MICROCYTOSIS (NORMAL) 1+ POLYCHROMASIA (NORMAL) 02/25/19 06:10 RBC Morph Micro Appear 3+ ANISOCYTOSIS (NORMAL) 2+ HYPOCHROMASIA (NORMAL) 2+ MICROCYTOSIS (NORMAL) 1+ POLYCHROMASIA (NORMAL) 02/25/19 06:10 Absolute Retic 0.093 10^6/uL (0.020-0.110) 02/24/19 16:20 Sodium 136 mmol/L (135-145) 02/25/19 06:10 Potassium 3.8 mmol/L (3.5-5.0) 02/25/19 06:10 Chloride 104 mmol/L (101-111) 02/25/19 06:10 Carbon Dioxide 21 mmol/L (21-32) 02/25/19 06:10 Anion Gap 11.0 (6-13) 02/25/19 06:10 BUN 14 mg/dL (6-20) 02/25/19 06:10 Creatinine 0.4 mg/dL (0.6-1.2) L 02/25/19 06:10 Estimated GFR (MDRD) 308 (>89) 02/25/19 06:10 Glucose 84 mg/dL (70-100) 02/25/19 06:10 Lactic Acid 0.9 mmol/L (0.5-2.2) 02/24/19 16:20 Calcium 8.7 mg/dL (8.5-10.3) 02/25/19 06:10 Iron < 6 ug/dL (45-182) L 02/24/19 16:20 TIBC 386 ug/dL (250-450) 02/24/19 16:20 Transferrin 276 mg/dL (180-329) 02/24/19 16:20 Ferritin 9.7 ng/mL (23.9-336.2) L 02/24/19 16:20 Total Bilirubin 0.8 mg/dL (0.2-1.0) 02/24/19 16:20 AST 16 IU/L (10-42) 02/24/19 16:20 ALT 13 IU/L (10-60) 02/24/19 16:20 Alkaline Phosphatase 55 IU/L (42-121) 02/24/19 16:20 Lactate Dehydrogenase 141 IU/L (91-225) 02/24/19 16:20 Total Protein 8.0 g/dL (6.7-8.2) 02/24/19 16:20 Albumin 3.9 g/dL (3.2-5.5) 02/24/19 16:20 Globulin 4.1 g/dL (2.1-4.2) 02/24/19 16:20 Albumin/Globulin Ratio 1.0 (1.0-2.2) 02/24/19 16:20 Lipase 33 U/L (22-51) 02/24/19 16:20 Vitamin B12 548 pg/mL (180-914) 02/24/19 16:20 Urine Color BROWN 02/24/19 16:03 Urine Clarity CLOUDY (CLEAR) 02/24/19 16:03 Urine pH 7.5 PH (5.0-7.5) 02/24/19 16:03 Ur Specific [place] 1.020 (1.002-1.030) 02/24/19 16:03 Urine Protein 100 mg/dL (NEGATIVE) H 02/24/19 16:03 Urine Glucose (UA) NEGATIVE mg/dL (NEGATIVE) 02/24/19 16:03 Urine Ketones NEGATIVE mg/dL (NEGATIVE) 02/24/19 16:03 Urine Occult Blood LARGE (NEGATIVE) H 02/24/19 16:03 Urine Nitrite POSITIVE (NEGATIVE) H 02/24/19 16:03 Urine Bilirubin NEGATIVE (NEGATIVE) 02/24/19 16:03 Urine Urobilinogen 0.2 (NORMAL) E.U./dL (NORMAL) 02/24/19 16:03 Ur Leukocyte Esterase MODERATE (NEGATIVE) H 02/24/19 16:03 Urine RBC 11-25 /HPF (0-5) H 02/24/19 16:03 Urine WBC >25 /HPF (0-3) H 02/24/19 16:03 Urine WBC Clumps PRESENT 02/24/19 16:03 Ur Squamous Epith Cells RARE Squamous (<= Few) 02/24/19 16:03 Urine Crystals 3-5 Triple Phosphate /LPF 02/24/19 16:03 Urine Bacteria Many /HPF (None Seen) H 02/24/19 16:03 Urine Yeast PRESENT 02/24/19 16:03 Ur Microscopic Review INDICATED 02/24/19 16:03 Urine Culture Comments INDICATED 02/24/19 16:03 Nasal Screen MRSA (PCR) NEGATIVE (NEGATIVE) 02/24/19 20:00 Influenza A (Rapid) Negative (Negative) 02/24/19 17:22 Influenza B (Rapid) Negative (Negative) 02/24/19 17:22 Blood Type A POSITIVE 02/24/19 18:04 Antibody Screen NEGATIVE 02/24/19 18:04 Crossmatch IS Only See Detail 02/24/19 18:04 - Procedures Procedures: Procedures CLOSED RED-INT FIX FEMUR (07/14/14) PACKED CELL TRANSFUSION (07/14/14) Sepsis Event Note (H) - Evaluation Current Stage of Sepsis: Sepsis Possible source of Sepsis: positive: Genitourinary, Skin/soft tissue
[2019-02-25] MEDS: ACETAMINOPHEN 325 MG TABLET PO PRN ×2 (14:19→19:47)
[2019-02-25] MEDS: SODIUM CHLORIDE 0.9% 500 ML IV PRN (16:44)
[2019-02-25] MEDS: CLINDAMYCIN 600 MG/50 ML 50 ML IV SCH ×2 (18:09→23:57)
[2019-02-26] MEDS: CLINDAMYCIN 600 MG/50 ML 50 ML IV SCH ×3 (05:13→18:53)
[2019-02-26 05:33] LABS: BASOPHILS % (AUTO) 0.6 %; EOSINOPHILS % (AUTO) 0.3 %; HGB - HEMOGLOBIN 8.9 g/dL (14.0-18.0); LYMPHOCYTES # (AUTO) 1.9 10^3/uL (1.5-3.5); LYMPHOCYTES % (AUTO) 24.7 %; MEAN CORPUSCULAR HEMOGLOBIN 18.7 pg (27.0-31.0); MEAN CORPUSCULAR HGB CONC 30.3 g/dL (32.0-36.0); MEAN CORPUSCULAR VOLUME 61.9 fL (80.0-94.0); MONOCYTES # (AUTO) 0.5 10^3/uL (0.0-1.0); MONOCYTES % (AUTO) 6.3 %; NEUTROPHILS # (AUTO) 5.3 10^3/uL (1.5-6.6); NEUTROPHILS % (AUTO) 68.1 %; PLT - PLATELET COUNT 275 10^3/uL (130-450); RED BLOOD COUNT 4.75 10^6/uL (4.70-6.10); RED CELL DISTRIBUTION WIDTH 32.4 % (12.0-15.0); WHITE BLOOD COUNT 7.8 x10^3/uL (4.8-10.8)
[2019-02-26 05:35] LABS: CALCIUM 8.7 mg/dL (8.5-10.3); CREATININE 0.6 mg/dL (0.6-1.2)
[2019-02-26] MEDS: PANTOPRAZOLE 40 MG VIAL IVP SCH (05:49)
[2019-02-26] MEDS: SODIUM CHLORIDE FLUSH 0.9% 10 ML SYRINGE IVP PRN ×2 (05:49→13:35)
[2019-02-26 06:03] LABS: PLATELET ESTIMATE, MANUAL NORMAL (130-450,000) (NORMAL); PLATELET MORPHOLOGY NORMAL APPEARANCE (NORMAL)
[2019-02-26] MEDS: POLYETHYLENE GLYCOL 3350 17 GM PACKET PO SCH (08:38)
[2019-02-26] MEDS: FERROUS GLUCONATE 324 MG TABLET PO SCH (08:38)
[2019-02-26] MEDS: SODIUM CHLORIDE FLUSH 0.9% 10 ML SYRINGE IVP SCH ×2 (08:39→16:47)
[2019-02-26] MEDS: cefTRIAXone 1 GM in SODIUM CHLORIDE 0.9% MINIBAG 100 ML IV SCH (08:39)
--- NOTE | 2019-02-26 11:13 | PROVIDER PROGRESS NOTE ---
Assessment/Plan - Problem List (1) Decubitus ulcer, hip Qualifiers: Pressure injury stage: unstageable Laterality: left Qualified Code(s): L89.220 - Pressure ulcer of left hip, unstageable Assessment/Plan: Will request a MAC Wound consult. Will order an MRI of hip(s) to R/O osteomyelitis. The wound fluid, removed in the ER has grown Staph aureus. Continue iv Clindamycin. The duration will depend on MRI results and Wound Care recommendations. (2) Infection due to Staphylococcus aureus Assessment/Plan: As above. This is not MRSA organism. Continue iv Clindamycin, to which it is sensitive. No positive blood cultures, however, to date. (3) Dermal sinus tract of lumbosacral region Assessment/Plan: As above. (4) UTI (urinary tract infection), bacterial Assessment/Plan: Pt on iv antibiotics with Ceftriaxone, which was started empirically. Proteus mirabilis is growing, and it is sensitive to Ceftriaxone. Plan a 21 day course in a male with UTI. Will check for pyelonephritis vs cystitis with a CT scan. (5) Proteus mirabilis infection Assessment/Plan: As above. (6) Microcytic hypochromic anemia Assessment/Plan: Hgb was 6.3 at admission. Pt received 2 U PRBCs at admission. Hgb stable since then (8.8 yesterday and 8.9 today). Stool guiac was neg in the ER. He will need a GI outpt W/U. (7) Paraplegic spinal paralysis Assessment/Plan: Stable. - Current Meds Current Meds: Current Medications Generic Name Dose Route Start Last Admin Trade Name Freq PRN Reason Stop Dose Admin Acetaminophen 650 mg 02/25/19 13:12 02/25/19 19:47 Tylenol PO 650 mg Q4HR PRN Administration Pain or Fever > 38C (100.4F) Hydrocodone Bitart/Acetaminophen 1 tab 02/24/19 20:31 02/25/19 12:12 [place] 5/325 PO 1 tab Q4HR PRN Administration Pain 5 to 7 Ferrous Gluconate 324 mg 02/25/19 09:00 02/26/19 08:38 Fergon PO 324 mg DAILYWM WILFRID Administration Ceftriaxone Sodium 1 gm/ 100 mls @ 200 mls/hr 02/25/19 09:00 02/26/19 09:36 Sodium Chloride IV Infused DAILY WILFRID Infusion Clindamycin Phosphate 50 mls @ 100 mls/hr 02/25/19 18:00 02/26/19 05:45 Cleocin 600 Mg/50 Ml IV Infused Q6HR WILFRID Infusion Sodium Chloride 500 mls @ 20 mls/hr 02/25/19 16:42 02/26/19 09:37 Normal Saline 0.9% IV 0 mls/hr Q24H PRN Infusion TKO RATE Morphine Sulfate 2 mg 02/24/19 22:07 02/25/19 19:48 Morphine IVP 2 mg Q3H PRN Administration PAIN Pantoprazole Sodium 40 mg 02/25/19 07:00 02/26/19 05:49 Protonix IVP 40 mg QDAC WILFRID Administration Polyethylene Glycol 17 gm 02/25/19 09:00 02/26/19 08:38 Miralax PO 17 gm DAILY WILFRID Administration Sodium Chloride 10 ml 02/24/19 20:31 02/26/19 05:49 Normal Saline Flush 0.9% IVP 10 ml PRN PRN Administration NEEDED PER PROVIDER ORDERS Sodium Chloride 10 ml 02/25/19 01:00 02/26/19 08:39 Normal Saline Flush 0.9% IVP 10 ml 0100,0900,1700 WILFRID Administration - Lab Result Fish Bone Diagrams: 02/26/19 05:10 02/26/19 05:10 - Additional Planning My Orders: My Active Orders 02/25/19 13:12 Acetaminophen [Tylenol] 650 mg PO Q4HR PRN 02/25/19 16:42 Sodium Chloride 0.9% [Normal Saline 0.9%] 500 ml IV Q24H 02/25/19 18:00 Clindamycin 600 mg/50 ml [Cleocin 600 mg/50 ml] 50 ml IV Q6HR Subjective - Subjective Patient Reports: Feeling Better Nursing Reports: Other (Pain at wound site has decreased from 4/10 to zero on his prn ordered pain meds.) Objective Vital Signs: Vital Signs - 24 hr 02/25/19 02/25/19 02/25/19 12:07 16:00 19:35 Temperature 102.3 C H 37.9 C H 37.6 C H Heart Rate [ 106 H 85 89 Monitoring electrodes] Respiratory 16 20 16 Rate Blood Pressure 108/60 [Left Brachial artery] Blood Pressure 95/56 L 95/55 L [Right Brachial artery] O2 Saturation 100 100 100 02/26/19 02/26/19 02/26/19 00:10 05:17 08:00 Temperature 37.8 C H 37.9 C H 37.8 C H Heart Rate [ 92 99 92 Monitoring electrodes] Respiratory 14 16 16 Rate Blood Pressure 100/53 L 110/54 L 101/61 [Left Brachial artery] Blood Pressure [Right Brachial artery] O2 Saturation 100 98 99 Oxygen O2 Source Room air I&O (Last 24 Hrs): Intake and Output Totals x24h 02/24/19 02/25/19 02/26/19 23:59 23:59 23:59 Intake Total 0 2315.333 672.666 Balance 0 2315.333 672.666 - Results Results: Laboratory Results WBC 7.8 x10^3/uL (4.8-10.8) 02/26/19 05:10 RBC 4.75 10^6/uL (4.70-6.10) 02/26/19 05:10 Hgb 8.9 g/dL (14.0-18.0) L 02/26/19 05:10 Hct 29.4 % (42.0-52.0) L 02/26/19 05:10 MCV 61.9 fL (80.0-94.0) L 02/26/19 05:10 MCH 18.7 pg (27.0-31.0) L 02/26/19 05:10 MCHC 30.3 g/dL (32.0-36.0) L 02/26/19 05:10 RDW 32.4 % (12.0-15.0) H 02/26/19 05:10 Plt Count 275 10^3/uL (130-450) 02/26/19 05:10 MPV 8.0 fL (7.4-11.4) 02/26/19 05:10 Reticulocyte % (Auto) 2.34 % (0.5-2.3) H 02/24/19 16:20 Neut # (Auto) 5.3 10^3/uL (1.5-6.6) 02/26/19 05:10 Lymph # (Auto) 1.9 10^3/uL (1.5-3.5) 02/26/19 05:10 [place] # (Auto) 0.5 10^3/uL (0.0-1.0) 02/26/19 05:10 Eos # (Auto) 0.0 10^3/uL (0.0-0.7) 02/26/19 05:10 Baso # (Auto) 0.0 10^3/uL (0.0-0.1) 02/26/19 05:10 Absolute Nucleated RBC 0.01 x10^3/uL 02/26/19 05:10 Total Counted 100 02/25/19 06:10 Band Neuts % (Manual) 2 % (0-10) 02/25/19 06:10 Abnorm Lymph % (Manual) 0 % 02/25/19 06:10 Nucleated RBC % 0.1 /100WBC 02/26/19 05:10 Neutrophils # (Manual) 7.4 10^3/uL (1.5-6.6) H 02/25/19 06:10 Lymphocytes # (Manual) 0.9 10^3/uL (1.5-3.5) L 02/25/19 06:10 Monocytes # (Manual) 0.6 10^3/uL (0.0-1.0) 02/25/19 06:10 Eosinophils # (Manual) 0.0 10^3/uL (0-0.7) 02/25/19 06:10 Basophils # (Manual) 0.1 10^3/uL (0-0.1) 02/25/19 06:10 Differential Comment MANUAL DIFFERENTIAL 02/25/19 06:10 Manual Slide Review Indicated 02/26/19 05:10 WBC Morphology NORMAL APPEARANCE (NORMAL) 02/25/19 06:10 Platelet Estimate NORMAL (130-450,000) (NORMAL) 02/26/19 05:10 Platelet Morphology NORMAL APPEARANCE (NORMAL) 02/26/19 05:10 RBC Morph Micro Appear 3+ ANISOCYTOSIS (NORMAL) 2+ POIKILOCYTOSIS (NORMAL) 3+ HYPOCHROMASIA (NORMAL) 2+ MICROCYTOSIS (NORMAL) 1+ TEARDROP CELLS (NORMAL) 1+ OVALOCYTES (NORMAL) 1+ SCHISTOCYTES (NORMAL) 02/24/19 16:20 RBC Morph Micro Appear 3+ ANISOCYTOSIS (NORMAL) 2+ POIKILOCYTOSIS (NORMAL) 3+ HYPOCHROMASIA (NORMAL) 2+ MICROCYTOSIS (NORMAL) 1+ TEARDROP CELLS (NORMAL) 1+ OVALOCYTES (NORMAL) 1+ SCHISTOCYTES (NORMAL) 02/24/19 16:20 RBC Morph Micro Appear 3+ ANISOCYTOSIS (NORMAL) 2+ POIKILOCYTOSIS (NORMAL) 3+ HYPOCHROMASIA (NORMAL) 2+ MICROCYTOSIS (NORMAL) 1+ TEARDROP CELLS (NORMAL) 1+ OVALOCYTES (NORMAL) 1+ SCHISTOCYTES (NORMAL) 02/24/19 16:20 RBC Morph Micro Appear 3+ ANISOCYTOSIS (NORMAL) 2+ POIKILOCYTOSIS (NORMAL) 3+ HYPOCHROMASIA (NORMAL) 2+ MICROCYTOSIS (NORMAL) 1+ TEARDROP CELLS (NORMAL) 1+ OVALOCYTES (NORMAL) 1+ SCHISTOCYTES (NORMAL) 02/24/19 16:20 RBC Morph Micro Appear 3+ ANISOCYTOSIS (NORMAL) 2+ POIKILOCYTOSIS (NORMAL) 3+ HYPOCHROMASIA (NORMAL) 2+ MICROCYTOSIS (NORMAL) 1+ TEARDROP CELLS (NORMAL) 1+ OVALOCYTES (NORMAL) 1+ SCHISTOCYTES (NORMAL) 02/24/19 16:20 RBC Morph Micro Appear 3+ ANISOCYTOSIS (NORMAL) 2+ HYPOCHROMASIA (NORMAL) 2+ MICROCYTOSIS (NORMAL) 1+ POLYCHROMASIA (NORMAL) 02/25/19 06:10 RBC Morph Micro Appear 3+ ANISOCYTOSIS (NORMAL) 2+ HYPOCHROMASIA (NORMAL) 2+ MICROCYTOSIS (NORMAL) 1+ POLYCHROMASIA (NORMAL) 02/25/19 06:10 RBC Morph Micro Appear 3+ ANISOCYTOSIS (NORMAL) 2+ HYPOCHROMASIA (NORMAL) 2+ MICROCYTOSIS (NORMAL) 1+ POLYCHROMASIA (NORMAL) 02/25/19 06:10 RBC Morph Micro Appear 3+ ANISOCYTOSIS (NORMAL) 2+ HYPOCHROMASIA (NORMAL) 2+ MICROCYTOSIS (NORMAL) 1+ POLYCHROMASIA (NORMAL) 02/25/19 06:10 RBC Morph Micro Appear 2+ ANISOCYTOSIS (NORMAL) 2+ POIKILOCYTOSIS (NORMAL) 1+ POLYCHROMASIA (NORMAL) 2+ HYPOCHROMASIA (NORMAL) 1+ MICROCYTOSIS (NORMAL) 1+ MACROCYTOSIS (NORMAL) 02/26/19 05:10 RBC Morph Micro Appear 2+ ANISOCYTOSIS (NORMAL) 2+ POIKILOCYTOSIS (NORMAL) 1+ POLYCHROMASIA (NORMAL) 2+ HYPOCHROMASIA (NORMAL) 1+ MICROCYTOSIS (NORMAL) 1+ MACROCYTOSIS (NORMAL) 02/26/19 05:10 RBC Morph Micro Appear 2+ ANISOCYTOSIS (NORMAL) 2+ POIKILOCYTOSIS (NORMAL) 1+ POLYCHROMASIA (NORMAL) 2+ HYPOCHROMASIA (NORMAL) 1+ MICROCYTOSIS (NORMAL) 1+ MACROCYTOSIS (NORMAL) 02/26/19 05:10 RBC Morph Micro Appear 2+ ANISOCYTOSIS (NORMAL) 2+ POIKILOCYTOSIS (NORMAL) 1+ POLYCHROMASIA (NORMAL) 2+ HYPOCHROMASIA (NORMAL) 1+ MICROCYTOSIS (NORMAL) 1+ MACROCYTOSIS (NORMAL) 02/26/19 05:10 RBC Morph Micro Appear 2+ ANISOCYTOSIS (NORMAL) 2+ POIKILOCYTOSIS (NORMAL) 1+ POLYCHROMASIA (NORMAL) 2+ HYPOCHROMASIA (NORMAL) 1+ MICROCYTOSIS (NORMAL) 1+ MACROCYTOSIS (NORMAL) 02/26/19 05:10 RBC Morph Micro Appear 2+ ANISOCYTOSIS (NORMAL) 2+ POIKILOCYTOSIS (NORMAL) 1+ POLYCHROMASIA (NORMAL) 2+ HYPOCHROMASIA (NORMAL) 1+ MICROCYTOSIS (NORMAL) 1+ MACROCYTOSIS (NORMAL) 02/26/19 05:10 Absolute Retic 0.093 10^6/uL (0.020-0.110) 02/24/19 16:20 Sodium 136 mmol/L (135-145) 02/26/19 05:10 Potassium 4.0 mmol/L (3.5-5.0) 02/26/19 05:10 Chloride 103 mmol/L (101-111) 02/26/19 05:10 Carbon Dioxide 23 mmol/L (21-32) 02/26/19 05:10 Anion Gap 10.0 (6-13) 02/26/19 05:10 BUN 13 mg/dL (6-20) 02/26/19 05:10 Creatinine 0.6 mg/dL (0.6-1.2) 02/26/19 05:10 Estimated GFR (MDRD) 193 (>89) 02/26/19 05:10 Glucose 89 mg/dL (70-100) 02/26/19 05:10 Lactic Acid 0.9 mmol/L (0.5-2.2) 02/24/19 16:20 Calcium 8.7 mg/dL (8.5-10.3) 02/26/19 05:10 Iron < 6 ug/dL (45-182) L 02/24/19 16:20 TIBC 386 ug/dL (250-450) 02/24/19 16:20 Transferrin 276 mg/dL (180-329) 02/24/19 16:20 Ferritin 9.7 ng/mL (23.9-336.2) L 02/24/19 16:20 Total Bilirubin 0.8 mg/dL (0.2-1.0) 02/24/19 16:20 AST 16 IU/L (10-42) 02/24/19 16:20 ALT 13 IU/L (10-60) 02/24/19 16:20 Alkaline Phosphatase 55 IU/L (42-121) 02/24/19 16:20 Lactate Dehydrogenase 141 IU/L (91-225) 02/24/19 16:20 Total Protein 8.0 g/dL (6.7-8.2) 02/24/19 16:20 Albumin 3.9 g/dL (3.2-5.5) 02/24/19 16:20 Globulin 4.1 g/dL (2.1-4.2) 02/24/19 16:20 Albumin/Globulin Ratio 1.0 (1.0-2.2) 02/24/19 16:20 Lipase 33 U/L (22-51) 02/24/19 16:20 Vitamin B12 548 pg/mL (180-914) 02/24/19 16:20 Urine Color BROWN 02/24/19 16:03 Urine Clarity CLOUDY (CLEAR) 02/24/19 16:03 Urine pH 7.5 PH (5.0-7.5) 02/24/19 16:03 Ur Specific [place] 1.020 (1.002-1.030) 02/24/19 16:03 Urine Protein 100 mg/dL (NEGATIVE) H 02/24/19 16:03 Urine Glucose (UA) NEGATIVE mg/dL (NEGATIVE) 02/24/19 16:03 Urine Ketones NEGATIVE mg/dL (NEGATIVE) 02/24/19 16:03 Urine Occult Blood LARGE (NEGATIVE) H 02/24/19 16:03 Urine Nitrite POSITIVE (NEGATIVE) H 02/24/19 16:03 Urine Bilirubin NEGATIVE (NEGATIVE) 02/24/19 16:03 Urine Urobilinogen 0.2 (NORMAL) E.U./dL (NORMAL) 02/24/19 16:03 Ur Leukocyte Esterase MODERATE (NEGATIVE) H 02/24/19 16:03 Urine RBC 11-25 /HPF (0-5) H 02/24/19 16:03 Urine WBC >25 /HPF (0-3) H 02/24/19 16:03 Urine WBC Clumps PRESENT 02/24/19 16:03 Ur Squamous Epith Cells RARE Squamous (<= Few) 02/24/19 16:03 Urine Crystals 3-5 Triple Phosphate /LPF 02/24/19 16:03 Urine Bacteria Many /HPF (None Seen) H 02/24/19 16:03 Urine Yeast PRESENT 02/24/19 16:03 Ur Microscopic Review INDICATED 02/24/19 16:03 Urine Culture Comments INDICATED 02/24/19 16:03 Nasal Screen MRSA (PCR) NEGATIVE (NEGATIVE) 02/24/19 20:00 Influenza A (Rapid) Negative (Negative) 02/24/19 17:22 Influenza B (Rapid) Negative (Negative) 02/24/19 17:22 Blood Type A POSITIVE 02/24/19 18:04 Antibody Screen NEGATIVE 02/24/19 18:04 Crossmatch IS Only See Detail 02/24/19 18:04 - Procedures Procedures: Procedures CLOSED RED-INT FIX FEMUR (07/14/14) PACKED CELL TRANSFUSION (07/14/14) Sepsis Event Note (H) - Evaluation Current Stage of Sepsis: Sepsis Possible source of Sepsis: positive: Genitourinary, Skin/soft tissue
[2019-02-26] MEDS ORDERED: IOPAMIDOL-300 100 ML VIAL ONE ×3 (11:48→13:00)
[2019-02-26] MEDS ORDERED: IOPAMIDOL-300 50 ML VIAL ONE ×2 (12:48→13:00)
[2019-02-26] MEDS: HYDROcod/ACETAM 5/325 MG TABLET PO PRN (13:35)
[2019-02-26] MEDS ORDERED: IOPAMIDOL-300 100 ML VIAL IVP ONE (13:52)
[2019-02-26] MEDS: MORPHINE 2 MG/ML SYRINGE IVP PRN (16:47)
[2019-02-27] MEDS: CLINDAMYCIN 600 MG/50 ML 50 ML IV SCH ×4 (00:16→17:56)
[2019-02-27] MEDS: SODIUM CHLORIDE FLUSH 0.9% 10 ML SYRINGE IVP SCH ×3 (00:16→17:56)
[2019-02-27] MEDS: HYDROcod/ACETAM 5/325 MG TABLET PO PRN ×2 (00:57→18:43)
[2019-02-27 05:53] LABS: CALCIUM 8.9 mg/dL (8.5-10.3); CREATININE 0.3 mg/dL (0.6-1.2)
[2019-02-27 05:54] LABS: BASOPHILS % (AUTO) 0.4 %; EOSINOPHILS # (AUTO) 0.1 10^3/uL (0.0-0.7); EOSINOPHILS % (AUTO) 1.3 %; HGB - HEMOGLOBIN 8.6 g/dL (14.0-18.0); LYMPHOCYTES # (AUTO) 2.4 10^3/uL (1.5-3.5); LYMPHOCYTES % (AUTO) 43.8 %; MEAN CORPUSCULAR HEMOGLOBIN 18.8 pg (27.0-31.0); MEAN CORPUSCULAR HGB CONC 30.5 g/dL (32.0-36.0); MEAN CORPUSCULAR VOLUME 61.7 fL (80.0-94.0); MEAN PLATELET VOLUME 8.4 fL (7.4-11.4); MONOCYTES # (AUTO) 0.4 10^3/uL (0.0-1.0); MONOCYTES % (AUTO) 7.3 %; NEUTROPHILS # (AUTO) 2.6 10^3/uL (1.5-6.6); NEUTROPHILS % (AUTO) 47.2 %; PLT - PLATELET COUNT 269 10^3/uL (130-450); RED BLOOD COUNT 4.55 10^6/uL (4.70-6.10); RED CELL DISTRIBUTION WIDTH 33.3 % (12.0-15.0); WHITE BLOOD COUNT 5.6 x10^3/uL (4.8-10.8)
[2019-02-27 06:22] LABS: PLATELET ESTIMATE, MANUAL NORMAL (130-450,000) (NORMAL); PLATELET MORPHOLOGY NORMAL APPEARANCE (NORMAL)
[2019-02-27] MEDS: PANTOPRAZOLE 40 MG VIAL IVP SCH (06:49)
[2019-02-27] MEDS: cefTRIAXone 1 GM in SODIUM CHLORIDE 0.9% MINIBAG 100 ML IV SCH (08:11)
[2019-02-27] MEDS: FERROUS GLUCONATE 324 MG TABLET PO SCH (08:11)
[2019-02-27] MEDS: POLYETHYLENE GLYCOL 3350 17 GM PACKET PO SCH (08:12)
[2019-02-27] MEDS: LACTOBACILLUS RHAMNOSUS GG CAPSULE PO SCH (10:39)
[2019-02-27] MEDS: MULTIVITAMIN W/MINERALS TABLET PO SCH (12:18)
--- NOTE | 2019-02-27 15:03 | CT Report ---
Reason: UTI, eval for pyelonephritis or obstruction Procedure Date: 02/26/2019 Accession Number: [id number] / [id number] Procedure: CT - ABDOMEN/PELVIS W/WO CPT Code: FULL RESULT: EXAM: CT ABDOMEN AND PELVIS WITHOUT AND WITH CONTRAST EXAM DATE: 02/26/2019 01:50 PM. HISTORY: UTI. Concern for pyelonephritis or obstruction. COMPARISON: None. TECHNIQUE: Routine helical CT imaging was performed through the abdomen and pelvis before and after administration of IV contrast: 100 cc of Isovue-300. Enteric contrast: No. Reconstruction: Coronal and sagittal. In accordance with CT protocol optimization, one or more of the following dose reduction techniques were utilized for this exam: automated exposure control, adjustment of mA and/or KV based on patient size, or use of iterative reconstructive technique. FINDINGS: Lung Bases: Unremarkable. Liver: Normal. No masses. Gallbladder/Bile Ducts: Calcified gallstones. No dilated ducts. Spleen: Normal. Pancreas: Normal. No masses or ductal obstruction. Adrenal Glands: Normal. Kidneys: Normal. No masses or hydronephrosis. Peritoneal Cavity/Bowel: Normal. No free fluid, free air or adenopathy. No masses or acute inflammatory process. Pelvis: Thick-walled bladder. Contrast in dilated prostatic and proximal penile urethra. Vasculature: No aneurysms or other significant abnormality. Bones: Spina bifida, scoliosis, and left femoral fixation noted. Dislocated left hip noted. IMPRESSION: 1. Thick-walled bladder compatible with cystitis. 2. Contrast in dilated prostatic and proximal penile urethra. 3. Calcified gallstones noted. 4. Scoliosis, spina bifida, and dislocated left hip noted. 5. Unremarkable kidneys and ureters. RADIA
--- NOTE | 2019-02-27 16:52 | MISCELLANEOUS PROVIDER NOTE ---
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 Patient is receiving current IV antibiotics and denies diarrhea. Had a drainage of his right hip abscess which grew out MSSA and is on clindamycin and is also with Rocephin for his UTI but denies dysuria CVA tenderness lethargy chest pain maculopapular rashes or joint swelling. Patient is being seen by wound care service. Objective: Vital signs are hemodynamically stable blood pressure slightly hypotensive current 111/67, nontachypneic non-hypoxemic afebrile. 100% O2 saturation on room air with RR 14 next General: Patient alert and oriented x3 no acute respiratory distress well mannered pleasant and calm. CV/lungs: No murmurs gallops clicks or rubs. CTABL Abdomen: Soft nontender nondistended positive bowel sounds all quadrants no HSM Extremities and skin: Neuro: T12 paraplegia with deficits at baseline Labs: Reviewed Imaging studies: Reviewed Assessment/plan: (1) Decubitus ulcer, hip Qualifiers: Pressure injury stage: unstageable Laterality: left Qualified Code(s): L89.220 - Pressure ulcer of left hip, unstageable Assessment/Plan: Patient being seen by [facility] wound service and will make further recommendations Due to the chronicity of decubitus ulcer to the hip as well as one to his buttocks in the lumbosacral region concern for chronic osteomyelitis, MRI is not available until 03/02/19 and will order this to R/O osteomyelitis. Alternatively patient may be managed with outpatient oral antibiotics and with MRI to be done as an outpatient and be referred to PCP if chronic osteomyelitis is not seen will then need a PICC line to be placed for at least 4-6 weeks of IV antibiotics. The wound fluid, removed in the ER has grown Staph aureus, Which turned out to be MSSA. Continues on clindamycin as well as Rocephin. Placed on lactobacillus for prophylaxis to avoid Cdad or C. difficile colitis. Patient also requesting to be placed in an adult assisted care however will likely need fdc facility with underlying chronic osteomyelitis if seen on MRI. (2) Infection due to Staphylococcus aureus Assessment/Plan: MSSA abscess infection with decubitus ulcer involvement. Continue iv Clindamycin, to which it is sensitive. No positive blood cultures, however, to date. (3) Dermal sinus tract of lumbosacral region Assessment/Plan: As above. Due to patient's tunneling of the sinus tract wound care service to make further recommendations however pending MRI to be done on and if patient has underlying chronic osteomyelitis will need IV antibiotics for a duration of 4-6 weeks. (4) UTI (urinary tract infection), bacterial,Proteus mirabilis Assessment/Plan: Pt on iv antibiotics with Ceftriaxone, which was started empirically. May de- escalate patient to receive Keflex or similar for 7-10 days total treatment. Proteus mirabilis is growing, and it is sensitive to Ceftriaxone. (5) Microcytic hypochromic anemia/Iron deficiency anemia Assessment/Plan: Currently no source of bleeding. Hgb was 6.3 at admission. Pt received 2 U PRBCs at admission. Hgb stable since then, Hemoglobin is 8.6 today. Will likely need GI workup iron studies indicated severe iron deficiency anemia with less than [address] on IV iron for a total of 3 days. Stool guiac was neg in the ER. He will need a GI outpt W/U. (6) Paraplegic spinal paralysis Assessment/Plan: Stable. Patient may have some signs of autonomic dysfunction with mildly labile blood pressures will continue to follow clinically. Would continue GI/DVT prophylaxis.
[2019-02-28] MEDS: CLINDAMYCIN 600 MG/50 ML 50 ML IV SCH ×5 (00:12→23:48)
[2019-02-28] MEDS: ACETAMINOPHEN 325 MG TABLET PO PRN ×2 (00:30→22:29)
[2019-02-28] MEDS: SODIUM CHLORIDE FLUSH 0.9% 10 ML SYRINGE IVP SCH ×4 (01:02→23:49)
[2019-02-28 05:48] LABS: BASOPHILS % (AUTO) 0.7 %; EOSINOPHILS # (AUTO) 0.2 10^3/uL (0.0-0.7); HGB - HEMOGLOBIN 8.9 g/dL (14.0-18.0); LYMPHOCYTES # (AUTO) 1.2 10^3/uL (1.5-3.5); LYMPHOCYTES % (AUTO) 22.8 %; MEAN CORPUSCULAR HEMOGLOBIN 18.6 pg (27.0-31.0); MEAN CORPUSCULAR VOLUME 64.1 fL (80.0-94.0); MEAN PLATELET VOLUME 8.2 fL (7.4-11.4); MONOCYTES # (AUTO) 0.4 10^3/uL (0.0-1.0); MONOCYTES % (AUTO) 7.5 %; NEUTROPHILS # (AUTO) 3.4 10^3/uL (1.5-6.6); PLT - PLATELET COUNT 306 10^3/uL (130-450); RED BLOOD COUNT 4.78 10^6/uL (4.70-6.10); RED CELL DISTRIBUTION WIDTH 32.3 % (12.0-15.0); WHITE BLOOD COUNT 5.2 x10^3/uL (4.8-10.8)
[2019-02-28 05:48] LABS: CALCIUM 8.9 mg/dL (8.5-10.3); CREATININE 0.4 mg/dL (0.6-1.2)
[2019-02-28 06:59] LABS: PLATELET ESTIMATE, MANUAL NORMAL (130-450,000) (NORMAL)
[2019-02-28] MEDS: HYDROcod/ACETAM 5/325 MG TABLET PO PRN ×4 (08:58→22:29)
[2019-02-28] MEDS: FERROUS GLUCONATE 324 MG TABLET PO SCH (08:58)
[2019-02-28] MEDS: MULTIVITAMIN W/MINERALS TABLET PO SCH (08:58)
[2019-02-28] MEDS: cefTRIAXone 1 GM in SODIUM CHLORIDE 0.9% MINIBAG 100 ML IV SCH (08:59)
[2019-02-28] MEDS: LACTOBACILLUS RHAMNOSUS GG CAPSULE PO SCH (08:59)
[2019-02-28] MEDS ORDERED: MIDODRINE 2.5 MG TABLET PO PRN (09:12)
[2019-02-28] MEDS: POLYETHYLENE GLYCOL 3350 17 GM PACKET PO SCH (10:41)
--- NOTE | 2019-02-28 13:35 | MISCELLANEOUS PROVIDER NOTE ---
Miscellaneous Provider Note - - Note: Miscellaneous Provider Note Note: Subjective: Patient is seen at bedside with no acute events, fevers, or drainage from chronic decubitus ulcer sites. Patient was seen by Dr. Moon and previously had bedside debridement of right hip abscess with packing along with left ischial decubitus ulcer exploration with debridement. Patient denies GI or symptoms. Currently receiving IV iron. Objective: Vital signs are hemodynamically stable. Afebrile. Heart rate of 68. Blood pressure 101/56. RR 18. 100% O2 saturation on room air. General: Patient alert and oriented x3 no acute respiratory distress well mannered pleasant and calm. CV/lungs: No murmurs gallops clicks or rubs. CTABL Abdomen: Soft nontender nondistended positive bowel sounds all quadrants no HSM Extremities and skin: Previously incised and drained and packed left hip abscess. Stage III/IV pressure injury to his left hip/Ischial. It is wound base is mixed slough, clean nongranular adipose tissue, with a few scattered granulation buds. Minimal exudate attached edges, edematous, boggy periwound tissue likely related to nearby abscess. 2.5 cm circumferentially from incision site with a depth of 0.[address] Stage IV pressure injury to the right proximal buttock has wound bed of clean muscle with exposed severed tendon. Periwound is hardened necrotic/callus-like tissue extending 2.5 cm beyond wound edges with exposed devitalized vascular structures. This tissue extends down the inner puente of the wound 1.5 cm. Neuro: T12 paraplegia with deficits at baseline Labs: Reviewed Imaging studies: Reviewed Assessment/plan: (1) Decubitus ulcer, hip; Present on admission. Stage III/IV pressure injury to his left hip/Ischial. Status post incision and drainage x2 [facility] Stage IV pressure injury to the right proximal buttock has wound bed of clean muscle with exposed severed tendon. Periwound is hardened necrotic/callus-like tissue extending 2.5 cm beyond wound edges with exposed devitalized vascular structures. This tissue extends down the inner puente of the wound 1.5 cm. Status post bedside debridement. MAC wound recs: Abscess packing to be changed every 3 days and as needed for dislodgment or significant soiling. Bordered foam dressing to be changed every 3 days and as needed for soiling or strikethrough and swelling. Right buttock dressing to be changed daily and as needed soiling and strikethrough Nursing to change dressings as needed until discharge. Recommendation for surgical debridement would be indicated. If patient discharges to home or another local facility, anticipate outpatient treatment at [facility]. CWON to follow-up with patient on Wednesday to evaluate progress and discuss discharge planning. Patient was seen by Surgical service Dr. Marshal Moon who recommends MRI for osteomyelitis evaluation and will likely need plastic surgery evaluation for long-term viability of tissue in order for closure of chronic decubitus ulcers. Initial CT abdomen pelvis on admission shows a dislocated left hip with scoliosis and spina bifida which may be risk factors for osteomyelitis. Due to the chronicity of decubitus ulcer to the hip as well as one to his buttocks And in his left ischial region concern for chronic osteomyelitis, MRI is not available until 03/02/19 and will order this to R/O osteomyelitis. If osteo-mellitus is present patient will likely need a PICC line and IV antibiotics for at least 4-6 weeks. [facility] facility placement. (2) Infection due to Staphylococcus aureus Assessment/Plan: MSSA abscess infection with decubitus ulcer involvement. Continue iv Clindamycin, to which it is sensitive. No positive blood cultures, however, to date. (3) Dermal sinus tract of lumbosacral region Assessment/Plan: As above. Due to patient's tunneling of the sinus tract wound care service to make further recommendations however pending MRI to be done on and if patient has underlying chronic osteomyelitis will need IV antibiotics for a duration of 4-6 weeks. (4) UTI (urinary tract infection), bacterial, Proteus mirabilis Assessment/Plan: Initial CT abdomen pelvis shows cystitis which may be chronic. Pt on iv antibiotics with Ceftriaxone, which was started empirically. May de-escalate patient to receive Keflex or similar for 7-10 days total treatment. Proteus mirabilis is growing, and it is sensitive to Ceftriaxone. (5) Microcytic hypochromic anemia/Iron deficiency anemia Assessment/Plan: Patient may be chronically losing blood through his chronic decubitus ulcers. Hgb was 6.3 at admission. Pt received 2 U PRBCs at admission. Hgb stable since then, Hemoglobin is 8.6 today. Will likely need GI workup iron studies indicated severe iron deficiency anemia with less than [address] on IV iron for a total of 3 days. Stool guiac was neg in the ER. He will need a GI outpt W/U. (6) Paraplegic spinal paralysis Assessment/Plan: Stable. Patient may have some signs of autonomic dysfunction with mildly labile blood pressures will continue to follow clinically. Continue with DVT/GI prophylaxis Attestation: Patient requires more than 96 hours of inpatient utilization due to ongoing medical management of chronic decubitus ulcers IV antibiotics which would de-escalate to oral antibiotics wound care as well as possible fpc facility placement
[2019-02-28] MEDS: cephALEXin 250 MG CAPSULE PO SCH ×2 (14:48→22:10)
[2019-02-28] MEDS: FERRIC GLUCONATE 125 MG in SODIUM CHLORIDE 0.9% 100ML 100 ML IV SCH (17:05)
[2019-03-01] MEDS: SODIUM CHLORIDE 0.9% 500 ML IV PRN (01:39)
[2019-03-01] MEDS: CLINDAMYCIN 600 MG/50 ML 50 ML IV SCH (05:44)
[2019-03-01] MEDS: FERROUS GLUCONATE 324 MG TABLET PO SCH (09:38)
[2019-03-01] MEDS: MULTIVITAMIN W/MINERALS TABLET PO SCH (09:39)
[2019-03-01] MEDS: SODIUM CHLORIDE FLUSH 0.9% 10 ML SYRINGE IVP SCH ×2 (09:39→15:49)
[2019-03-01] MEDS: cephALEXin 250 MG CAPSULE PO SCH (09:39)
[2019-03-01] MEDS: FERRIC GLUCONATE 125 MG in SODIUM CHLORIDE 0.9% 100ML 100 ML IV SCH (09:39)
[2019-03-01] MEDS: POLYETHYLENE GLYCOL 3350 17 GM PACKET PO SCH (09:39)
[2019-03-01] MEDS: LACTOBACILLUS RHAMNOSUS GG CAPSULE PO SCH (09:39)
[2019-03-01] MEDS: MORPHINE 2 MG/ML SYRINGE IVP PRN ×3 (09:44→22:33)
--- NOTE | 2019-03-01 12:16 | MISCELLANEOUS PROVIDER NOTE ---
Miscellaneous Provider Note - - Note: Subjective: Patient seen at bedside with no acute events. Patient scheduled to be transferred to [facility] for MRI testing. Patient does have a titanium nalini to left lower extremity from a previous accident. Upon return patient denies any fevers, chills, pain to left or right hip. Objective: Vital signs are hemodynamically stable. Afebrile. Heart rate of 80. Blood pressure 101/56. RR 18. 100% O2 saturation room air. General: Patient alert and oriented x3 no acute respiratory distress well mannered pleasant and calm. CV/lungs: No murmurs gallops clicks or rubs. CTABL Abdomen: Soft nontender nondistended positive bowel sounds all quadrants no HSM Extremities and skin: Previously incised and drained and packed left hip abscess. Stage III/IV pressure injury to his left hip/Ischial. It is wound base is mixed slough, clean nongranular adipose tissue, with a few scattered granulation buds. Minimal exudate attached edges, edematous, boggy periwound tissue likely related to nearby abscess. 2.5 cm circumferentially from incision site with a depth of 0.[address] Stage IV pressure injury to the right proximal buttock has wound bed of clean muscle with exposed severed tendon. Periwound is hardened necrotic/callus-like tissue extending 2.5 cm beyond wound edges with exposed devitalized vascular structures. This tissue extends down the inner puente of the wound 1.5 cm. Neuro: T12 paraplegia with deficits at baseline Labs: Reviewed Imaging studies: Reviewed Assessment/plan: (1) Multiple Decubitus ulcers, Right hip and Left Ischium; With associated abscess. Present on admission. Stage III/IV pressure injury to his left hip/Ischium. Status post incision and drainage x2 with the initial packing done on [facility] floor. Stage IV pressure injury to the right proximal buttock has wound bed of clean muscle with exposed severed tendon. Periwound is hardened necrotic/callus-like tissue extending 2.5 cm beyond wound edges with exposed devitalized vascular structures. This tissue extends down the inner puente of the wound 1.5 cm. Status post bedside debridement. Right ischial decubitus ulcer, stage 4, in need of debridement; doesn't appear infected clinically at present. Left greater trochanter abscess, s/p I & D, perhaps inadequately drained, or second abscess, based on MRI report at [facility] will need percutaneous vs open surgical drainage to be taken to OR in am. [facility] wound recs: Abscess packing to be changed every 3 days and as needed for dislodgment or significant soiling. Bordered foam dressing to be changed every 3 days and as needed for soiling or strikethrough and swelling. Right buttock dressing to be changed daily and as needed soiling and strikethrough Nursing to change dressings as needed until discharge. Recommendation for surgical debridement would be indicated. If patient discharges to home or another local facility, anticipate outpatient treatment at [facility] clinic. CWON to follow-up with patient on Wednesday to evaluate progress and discuss discharge planning. Patient was sent to [facility] for an MRI due to no staff available to administer and perform MRI at [facility]. Radiologist who I spoke over the phone had mentioned that patient does have a collection or abscess adjacent to the left greater trochanter and patient's decubitus ulcer that is of concern where the left ischium is is a deep ulcer all the way to the wall of rectum. In addition the CT abdomen pelvis done on admission mentions a left hip dislocation which is not seen on this MRI. In addition patient does not have evidence or signs of osteomyelitis to the bony pelvis. However the presence of underlying osteomyelitis to left femur/hip due to prolonged pressure ulcers to prior left femoral fixation surgery with hardware, is a possibility. Due to chronicity of patient's decubitus ulcers with worsening and progression since 2012 will elect for a PICC line and prolonged IV antibiotics for approximately 3-4 weeks time. (2) Infection due to Staphylococcus aureus, MSSA. Assessment/Plan: Wound cultures was obtained from the left hip/ischium. Will discontinue clindamycin as no evidence of anaerobes present although patient does have abscess still present at the left greater trochanter which likely would benefit from another incision drainage and debridement. Will empirically place on IV Merrem with the eventual transitioning over to ertapenem once daily. Invanz should cover MSSA as well as anaerobes. In addition patient has Proteus UTI and this is sensitive to carbapenems. MSSA abscess infection with decubitus ulcer involvement. Blood cultures have all yielded negative growth to date. Lactobacillus in anticipation of long-term IV antibiotics. (3) Dermal sinus tract of lumbosacral region. Assessment/Plan: As above. Right hip/ischium thought to have possible underlying osteomyelitis although radiology does not see evidence to suggest osteomyelitis of the bony pelvis. Discontinue clindamycin and placed on IV Merrem every 8. Will transition to IV Invanz to continue at [facility]. (4) UTI (urinary tract infection), bacterial, Proteus mirabilis. Assessment/Plan: Initial CT abdomen pelvis shows cystitis which may be chronic. Patient previously on IV Rocephin and then de-escalated Keflex however will elect to tx with monotherapy MERREM to treat both UTI as well as patient's existing abscess to the left greater trochanter. Continue with lactobacillus. (5) Microcytic hypochromic anemia/Iron deficiency anemia. Assessment/Plan: Patient may be chronically losing blood through his chronic decubitus ulcers. Hgb was 6.3 at admission. Pt received 2 U PRBCs at admission. Hgb stable since then, Hemoglobin is 8.6 today. Will likely need GI workup iron studies indicated severe iron deficiency anemia with less than [address] on IV iron for a total of 3 days. Stool guiac was neg in the ER. He will need a GI outpt W/U. (6) Paraplegic spinal paralysis. Assessment/Plan: Stable. Patient may have some signs of autonomic dysfunction with mildly labile blood pressures will continue to follow clinically. Continue with DVT With SHANITA hose only/GI prophylaxis Attestation: Patient requires more than 96 hours of inpatient utilization due to ongoing medical management of chronic decubitus ulcers IV antibiotics as well as possible long term facility placement
[2019-03-01] MEDS: MEROPENEM 500 MG in SODIUM CHLORIDE 0.9% MINIBAG 100 ML IV SCH ×2 (14:49→22:23)
[2019-03-01] MEDS: HYDROcod/ACETAM 5/325 MG TABLET PO PRN (16:57)
--- NOTE | 2019-03-01 17:52 | CONSULTATION NOTE ---
Referring Provider Name of Referring Provider:: Dr. New Consult Date: 03/01/19 Chief Complaint - Chief Complaint Chief Complaint: decubitus ulcer History of Present Illness - Admitted From Admitted From:: ER - History Obtained From Records Reviewed: yes History obtained from: pt, records Exam Limitations: none - History of Present Illness HPI Comment/Other: 28 yo male with hx of paraplegia since 2004 following surgery in [facility] to remove a spinal cord tumor. He was admitted on 02/24/19 with sepsis thought due to a left hip abscess which was drained in the ER, and possibly a UTI as well. Wound culture was + for MSSA and he has been on treatment since with resolution of signs/sx of sepsis. Wound clinic consultation was obtained and a necrotic right ischial decubitus ulcer was identified, thought to be Stage 3-4, and possibly have associated osteomyelitis. MRI was obtained today in [facility] which by report (images not presently available) shows no evidence of osteomyelitis but that the ischial ulcer tracked near to the rectum. It also reportedly shows an undrained fluid collection/abscess involving the left hip/greater trochanter. Pt reports no difficulty with bm's, including no melena, BRBPR or diarrhea. He is feeling much better since admission. He uses a wheelchair for ambulation and a cushion which has been purchased in 2016. He has no sx referable to his decubiti. History - Past Medical History Cardiovascular: reports: None Respiratory: reports: None Endocrine/Autoimmune: reports: None GI: reports: None : reports: Incontinence, Chronic bladder infection HEENT: reports: None Psych: reports: Depression, Anxiety, Post traumatic stress disorder Musculoskeletal: reports: Scoliosis, Chronic back pain Derm: reports: Other drug resistant infections MRSA Hx?: No Other Past Medical History: Incontience, paraplegic - Past Surgical History Ortho: reports: Spine surgery, Other (ORIF left femur) - Family & Social History Living arrangement: skilled nursing Living Situation: With caregiver(s) - Substance History Use: Uses substance without health or social issues: NONE - POLST Patient has POLST: No Meds/Allgy - Home Medications Home Medications: Ambulatory Orders Medication Instructions Recorded Confirmed Ibuprofen 400 mg PO DAILY 02/25/19 02/25/19 - Allergies Allergies/Adverse Reactions: Allergies Allergy/AdvReac Type Severity Reaction Status Date / Time No Known Drug Allergies Allergy Verified 03/05/18 10:40 Review of Systems - Constitutional Constitutional: denies: Fever, Chills - Gastrointestinal Gastrointestinal: denies: Abdominal pain, Constipation, Diarrhea, Change in bowel habits, Rectal bleeding, Black stools, Bloody stools, Nausea, Vomiting Exam - Vital Signs Reviewed Vital Signs: Yes Vital Signs: Vital Signs x48h Temp Pulse Resp BP Pulse Ox 03/01/19 15:50 37.1 C 87 20 112/62 100 - Physical Exam General Appearance: positive: No acute distress, Alert Eyes Bilateral: positive: Normal inspection ENT: positive: ENT inspection nml Neck: positive: Nml inspection, No JVD, Trachea midline. negative: Lymphadenopathy (R), Lymphadenopathy (L) Respiratory: positive: Chest non-tender, No respiratory distress, Breath sounds nml Cardiovascular: positive: Regular rate & rhythm, No murmur, No gallop Abdomen: positive: Non-tender, No organomegaly Back: positive: Other (well healed lumbar spine surgical scar; marked scoliosis) Skin: positive: Color nml, No rash, Warm, Dry Extremities: positive: Other (atrophic lower extremities; right ischium: 3 cm diameter ulcer with necrotic adipose tissue visible; unknown depth, no drainage, minimal soft tissue swelling, nontender left greater trochanter: small I & D opening with nu-gauze packing, removed, small cavity approx 2 cm diamter over greater trochanter; surrounding soft tissue swelling and erythema but no other fluctuance appreciated. minimal seropurulent drainage. left ischium: small dry eschar 1 cm diameter, fixed, firm, no palpable tracks or fluctuance, c/w healing/healed decubitus.) Neurologic/Psychiatric: positive: Oriented x3, Sensory loss (paraplegia) Conclusion/Plan - Diagnosis Diagnosis: 1. right ischial decubitus ulcer, likely stage 4, in need of debridement; doesn't appear infected clinically at present. 2. left greater trochanter abscess, s/p I & D, perhaps inadequately drained, or second abscess, based on MRI report. - Plan Plan: 1. Debridement of right ischial decubitus ulcer in OR tomorrow. 2. Review MRI images with radiologist and consider drainage of left hip abscess either surgically or percutaneously based on correlating findings at MRI with clinical picture. Discussed with hospitalist and patient, who agree with this plan. - Lab Results Lab results reviewed: Yes Fish Bones: 02/28/19 05:12 02/28/19 05:10 - Diagnostic Imaging Results Diagnostic Imaging Results: positive: Final report reviewed Diagnostic Imaging Results Comments: See HPI
[2019-03-01] MEDS: SODIUM CHLORIDE FLUSH 0.9% 10 ML SYRINGE IVP PRN (22:34)
[2019-03-02] MEDS: SODIUM CHLORIDE FLUSH 0.9% 10 ML SYRINGE IVP SCH ×3 (05:07→18:00)
[2019-03-02] MEDS: MEROPENEM 500 MG in SODIUM CHLORIDE 0.9% MINIBAG 100 ML IV SCH ×3 (05:34→22:22)
[2019-03-02] MEDS: HYDROcod/ACETAM 5/325 MG TABLET PO PRN ×3 (05:44→19:34)
--- NOTE | 2019-03-02 09:06 | MISCELLANEOUS PROVIDER NOTE ---
Miscellaneous Provider Note - - Note: Subjective: Patient seen at bedside with no acute events. Patient states that he feels better than prior days. Patient denies fevers chills lower extremity pain flank pain or bleeding from decubitus ulcers with purulence. Patient had an MRI yesterday. Objective: Vital signs are hemodynamically stable. Afebrile. Heart rate of 81 bpm. Blood pressure 106/57. RR 16. 100% O2 saturation room air. General: Patient alert and oriented x3 no acute respiratory distress well mannered pleasant and calm. CV/lungs: No murmurs gallops clicks or rubs. CTABL Abdomen: Soft nontender nondistended positive bowel sounds all quadrants no HSM Extremities and skin: Previously incised and drained and packed left hip abscess. Stage III/IV pressure injury to his left hip/Ischial. It is wound base is mixed slough, clean nongranular adipose tissue, with a few scattered granulation buds. Minimal exudate attached edges, edematous, boggy periwound tissue likely related to nearby abscess. Mildly erythematous borders hard and calcified, Packing in place. Stage IV pressure injury to the right proximal buttock has wound bed of clean muscle with exposed severed tendon. Periwound is hardened necrotic/callus-like tissue extending 2.5 cm beyond wound edges with exposed devitalized vascular structures. This tissue extends down the inner puente of the wound 1.5 cm. Neuro: T12 paraplegia with deficits at baseline Labs: Reviewed Imaging studies: Reviewed Assessment/plan: (1) Multiple Decubitus ulcers, Right hip and Left Ischium; With associated abscess. Present on admission. Stage III/IV pressure injury to his left hip/Ischium. Status post incision and drainage x2 with the initial packing done on [facility] floor. Stage IV pressure injury to the right proximal buttock has wound bed of clean muscle with exposed severed tendon. Periwound is hardened necrotic/callus-like tissue extending 2.5 cm beyond wound edges with exposed devitalized vascular structures. This tissue extends down the inner puente of the wound 1.5 cm. Sta tus post bedside debridement. Right ischial decubitus ulcer, stage 4, in need of debridement; doesn't appear infected clinically at present. Left greater trochanter abscess, s/p I & D, perhaps inadequately drained, or second abscess, based on MRI report at [facility] will need percutaneous vs open surgical drainage to be performed by surgery service today. [facility] wound recs: Abscess packing to be changed every 3 days and as needed for dislodgment or significant soiling. Bordered foam dressing to be changed every 3 days and as needed for soiling or strikethrough and swelling. Right buttock dressing to be changed daily and as needed soiling and strikethrough Nursing to change dressings as needed until discharge. Recommendation for surgical debridement would be indicated. If patient discharges to home or another local facility, anticipate outpatient treatment at [facility] clinic. CWON to follow-up with patient on Wednesday to evaluate progress and discuss discharge planning. Patient was sent to [facility] for an MRI due to no staff available to administer and perform MRI at [facility]. Radiologist who I spoke over the phone had mentioned that patient does have a collection or abscess adjacent to the left greater trochanter and patient's decubitus ulcer that is of concern where the left ischium is is a deep ulcer all the way to the wall of rectum. In addition the CT abdomen pelvis done on admission mentions a left hip dislocation which is not seen on this MRI. In addition patient does not have evidence or signs of osteomyelitis to the bony pelvis. However the presence of underlying osteomyelitis to left femur/hip due to prolonged pressure ulcers to prior left femoral fixation surgery with hardware, is a possibility. Due to chronicity of patient's decubitus ulcers with worsening and progression since 2012 will elect for a PICC line and prolonged IV antibiotics for approximately 4 weeks time. (2) Infection due to Staphylococcus aureus, MSSA. Assessment/Plan: Wound cultures was obtained from the left hip/ischium. Will discontinue clindamycin as no evidence of anaerobes present although patient does have abscess still present at the left greater trochanter which likely would benefit from another incision drainage and debridement. Will empirically place on IV Merrem with the eventual transitioning over to ertapenem once daily. Invanz should cover MSSA as well as anaerobes. In addition patient has Proteus UTI and this is sensitive to carbapenems. MSSA abscess infection with decubitus ulcer involvement. Blood cultures have all yielded negative growth to date. Lactobacillus in anticipation of long-term IV antibiotics. (3) Dermal sinus tract of lumbosacral region. Assessment/Plan: As above. Right hip/ischium thought to have possible underlying osteomyelitis although radiology does not see evidence to suggest osteomyelitis of the bony pelvis. Discontinue clindamycin and placed on IV Merrem every 8. Will transition to IV Invanz to continue at [facility]. (4) UTI (urinary tract infection), bacterial, Proteus mirabilis. Assessment/Plan: Initial CT abdomen pelvis shows cystitis which may be chronic. Patient previously on IV Rocephin and then de-escalated Keflex however will elect to tx with monotherapy MERREM to treat both UTI as well as patient's existing abscess to the left greater trochanter. Continue with lactobacillus. (5) Microcytic hypochromic anemia/Iron deficiency anemia. Assessment/Plan: Patient may be chronically losing blood through his chronic decubitus ulcers. Hgb was 6.3 at admission. Pt received 2 U PRBCs at admission. Hgb stable since then, Hemoglobin is 8.6 today. Will likely need GI workup iron studies indicated severe iron deficiency anemia with less than [address] on IV iron for a total of 3 days. Stool guiac was neg in the ER. He will need a GI outpt W/U. (6) Paraplegic spinal paralysis. Assessment/Plan: Stable. Patient may have some signs of autonomic dysfunction with mildly labile blood pressures will continue to follow clinically. Continue with DVT With SHANITA hose only/GI prophylaxis Attestation: Patient requires more than 96 hours of inpatient utilization due to ongoing medical management of chronic decubitus ulcers IV antibiotics as well as possible long-term facility placement
[2019-03-02] MEDS: MORPHINE 2 MG/ML SYRINGE IVP PRN ×3 (09:10→18:00)
[2019-03-02] MEDS: SODIUM CHLORIDE 0.9% 500 ML IV PRN (09:10)
[2019-03-02] MEDS: MULTIVITAMIN W/MINERALS TABLET PO SCH (09:17)
[2019-03-02] MEDS: LACTOBACILLUS RHAMNOSUS GG CAPSULE PO SCH (09:17)
[2019-03-02] MEDS: POLYETHYLENE GLYCOL 3350 17 GM PACKET PO SCH (09:18)
[2019-03-02] MEDS: FERROUS GLUCONATE 324 MG TABLET PO SCH (09:18)
--- NOTE | 2019-03-02 10:22 | ANESTHESIA ---
Pre-Anesthesia VS, & Labs - Diagnosis Diagnosis 1. right ischial decubitus ulcer, likely stage 4 , in need of debridement; doesn't appear infected clinically at present. 2. left greater trochanter abscess, s/p I & D, perhaps inadequately drained, or second abscess, based on MRI report. - Procedure Debridement of Bilateral hip wounds Vital Signs: Temp Pulse Resp BP Pulse Ox 36.8 C 81 16 106/57 L 100 03/02/19 08:04 03/02/19 08:04 03/02/19 08:04 03/02/19 08:04 03/02/19 08:04 Height 5 ft 7 in Weight (kg) 51.5 kg Body Mass Index 17.7 - NPO >8 hours - Lab Results Current Lab Results: Laboratory Tests 03/01/19 08:27: C-Reactive Protein 10.2 H 02/28/19 05:12: WBC 5.2, RBC 4.78, Hgb 8.9 L, Hct 30.6 L, MCV 64.1 L, MCH 18.6 L , MCHC 29.0 L, RDW 32.3 H, Plt Count 306, MPV 8.2, Neut # (Auto) 3.4, Lymph # (Auto) 1.2 L, [place] # (Auto) 0.4, Eos # (Auto) 0.2, Baso # (Auto) 0.0, Absolute Nucleated RBC 0.00, Nucleated RBC % 0.0, Manual Slide Review Indicated, Platelet Estimate NORMAL (130-450,000), RBC Morph Micro Appear 3+ HYPOCHROMASIA 02/28/19 05:10: Sodium 135, Potassium 4.5, Chloride 101, Carbon Dioxide 24, Anion Gap 10.0, BUN 15, Creatinine 0.4 L, Estimated GFR (MDRD) 308, Glucose 84, Calcium 8.9 02/27/19 04:43: Sodium 136, Potassium 4.2, Chloride 103, Carbon Dioxide 23, Anion Gap 10.0, BUN 15, Creatinine 0.3 L, Estimated GFR (MDRD) 430, Glucose 84, Calcium 8.9 02/27/19 04:43: WBC 5.6, RBC 4.55 L, Hgb 8.6 L, Hct 28.1 L, MCV 61.7 L, MCH 18.8 L, MCHC 30.5 L, RDW 33.3 H, Plt Count 269, MPV 8.4, Neut # (Auto) 2.6, Lymph # (Auto) 2.4, [place] # (Auto) 0.4, Eos # (Auto) 0.1, Baso # (Auto) 0.0, Absolute Nucleated RBC 0.00, Nucleated RBC % 0.0, Manual Slide Review Indicated, Platelet Estimate NORMAL (130-450,000), Platelet Morphology NORMAL APPEARANCE, RBC Morph Micro Appear 1+ OVALOCYTES 02/26/19 05:10: Sodium 136, Potassium 4.0, Chloride 103, Carbon Dioxide 23, Anion Gap 10.0, BUN 13, Creatinine 0.6, Estimated GFR (MDRD) 193, Glucose 89, Calcium 8.7 02/26/19 05:10: WBC 7.8, RBC 4.75, Hgb 8.9 L, Hct 29.4 L, MCV 61.9 L, MCH 18.7 L , MCHC 30.3 L, RDW 32.4 H, Plt Count 275, MPV 8.0, Neut # (Auto) 5.3, Lymph # (Auto) 1.9, [place] # (Auto) 0.5, Eos # (Auto) 0.0, Baso # (Auto) 0.0, Absolute Nucleated RBC 0.01, Nucleated RBC % 0.1, Manual Slide Review Indicated, Platelet Estimate NORMAL (130-450,000), Platelet Morphology NORMAL APPEARANCE, RBC Morph Micro Appear 1+ MACROCYTOSIS 02/25/19 06:10: Sodium 136, Potassium 3.8, Chloride 104, Carbon Dioxide 21, Anion Gap 11.0, BUN 14, Creatinine 0.4 L, Estimated GFR (MDRD) 308, Glucose 84, Calcium 8.7 02/25/19 06:10: WBC 9.0, RBC 4.60 L, Hgb 8.8 L, Hct 28.8 L, MCV 62.7 L, MCH 19.0 L, MCHC 30.4 L, RDW 32.1 H, Plt Count 284, MPV 8.2, Neut # (Auto) Not Repo rtable, Lymph # (Auto) Not Reportable, [place] # (Auto) Not Reportable, Eos # (Auto) Not Reportable, Baso # (Auto) Not Reportable, Absolute Nucleated RBC Not Reportable, Total Counted 100, Band Neuts % (Manual) 2, Abnorm Lymph % (Manual) 0, Nucleated RBC % Not Reportable, Neutrophils # (Manual) 7.4 H, Lymphocytes # (Manual) 0.9 L, Monocytes # (Manual) 0.6, Eosinophils # (Manual) 0.0, Basophils # (Manual) 0.1, Differential Comment MANUAL DIFFERENTIAL, Manual Slide Review Indicated, WBC Morphology NORMAL APPEARANCE, Platelet Estimate NORMAL (130-450 ,000), Platelet Morphology 1+ GIANT PLATELETS, RBC Morph Micro Appear 1+ POLYCHROMASIA 02/24/19 18:04: Blood Type A POSITIVE, Antibody Screen NEGATIVE, Crossmatch IS Only See Detail 02/24/19 16:20: Lactate Dehydrogenase 141 02/24/19 16:20: Ferritin 9.7 L, Vitamin B12 548 02/24/19 16:20: Iron < 6 L, TIBC 386, Transferrin 276 02/24/19 16:20: RBC 3.99 L, Reticulocyte % (Auto) 2.34 H, Absolute Retic 0.093 02/24/19 16:20: Lactic Acid 0.9 02/24/19 16:20: Sodium 134 L, Potassium 3.7, Chloride 102, Carbon Dioxide 21, Anion Gap 11.0, BUN 20, Creatinine 0.4 L, Estimated GFR (MDRD) 308, Glucose 90, Calcium 9.0, Total Bilirubin 0.8, AST 16, ALT 13, Alkaline Phosphatase 55, Total Protein 8.0, Albumin 3.9, Globulin 4.1, Albumin/Globulin Ratio 1.0, Lipase 33 02/24/19 16:20: WBC 7.6, RBC 3.97 L, Hgb 6.3 L*, Hct 21.5 L, MCV 54.2 L, MCH 15.8 L, MCHC 29.1 L, RDW 24.1 H, Plt Count 335, MPV 8.2, Neut # (Auto) 4.7, Lymph # (Auto) 2.3, [place] # (Auto) 0.5, Eos # (Auto) 0.0, Baso # (Auto) 0.0, Absolute Nucleated RBC 0.00, Nucleated RBC % 0.1, Manual Slide Review Indicated, Platelet Estimate NORMAL (130-450,000), Platelet Morphology NORMAL APPEARANCE, RBC Morph Micro Appear 1+ SCHISTOCYTES Fish Bones: 02/28/19 05:12 02/28/19 05:10 Home Medications and Allergies Home Medications: Ambulatory Orders Ibuprofen 400 mg PO DAILY 02/25/19 Active Medications Acetaminophen (Tylenol) 650 mg PO Q4HR PRN PRN Reason: Pain or Fever > 38C (100.4F) Last Admin: 02/28/19 22:29 Dose: 325 mg Hydrocodone Bitart/Acetaminophen ([place] 5/325) 1 tab PO Q4HR PRN PRN Reason: Pain 5 to 7 Last Admin: 03/02/19 09:18 Dose: 1 tab Ferrous Gluconate (Fergon) 324 mg PO DAILYWM [facility] Last Admin: 03/02/19 09:18 Dose: 324 mg Sodium Chloride (Normal Saline 0.9%) 500 mls @ 20 mls/hr IV Q24H PRN PRN Reason: TKO RATE Last Admin: 03/02/19 09:10 Dose: 20 mls/hr Meropenem 500 mg/ Sodium (Chloride) 100 mls @ 200 mls/hr IV TID [facility] Last Infusion: 03/02/19 06:23 Dose: Infused Lactobacillus Rhamnosus (Culturelle) 1 cap PO DAILY [facility] Last Admin: 03/02/19 09:17 Dose: 1 cap Midodrine () 5 mg PO TID PRN PRN Reason: SBP<100 Morphine Sulfate (Morphine) 2 mg IVP Q3H PRN PRN Reason: PAIN Last Admin: 03/02/19 09:10 Dose: 2 mg Multivitamins/Minerals (Theragran M) 1 tab PO DAILYWM [facility] Last Admin: 03/02/19 09:17 Dose: 1 tab Polyethylene Glycol (Miralax) 17 gm PO DAILY [facility] Last Admin: 03/02/19 09:18 Dose: Not Given Sodium Chloride (Normal Saline Flush 0.9%) 10 ml IVP PRN PRN PRN Reason: NEEDED PER PROVIDER ORDERS Last Admin: 03/01/19 22:34 Dose: 10 ml Sodium Chloride (Normal Saline Flush 0.9%) 10 ml IVP 0100,0900,1700 [facility] Last Admin: 03/02/19 09:10 Dose: 10 ml Ibuprofen 400 mg PO DAILY 02/25/19 Allergies/Adverse Reactions: Allergies Allergy/AdvReac Type Severity Reaction Status Date / Time No Known Drug Allergies Allergy Verified 03/05/18 10:40 Anes History & Medical History - Anesthetic History Anesthesia Complications: reports: No previous complications - Medical History Cardiovascular: reports: None Pulmonary: reports: None Gastrointestinal: reports: None Urinary: reports: Incontinence, Chronic bladder infection 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) Musculoskeletal: reports: Scoliosis, Chronic back pain Endocrine/Autoimmune: reports: None Blood Disorders: reports: Anemia Skin: reports: Other drug resistant infections Smoking Status: Never smoker Psychosocial: reports: Depression, Anxiety Other Past Medical History: Incontience, paraplegic - Surgical History Orthopedic: Spine surgery, Other (ORIF left femur) Exam General: Alert, Oriented x3, Cooperative, No acute distress Dental: WNL Mouth Openin Fingerbreadth Neck Mobility: Normal Mallampati classification: II Thyromental Distance: 4-6 cm Respiratory: Lungs clear, Normal breath sounds, No respiratory distress, No accessory muscle use Cardiovascular: Regular rate, Normal S1, Normal S2, No murmurs Mental/Cognitive Status: Alert/Oriented X3, Normal for patient Plan Anesthesia Type: General Consent for Procedure(s) Verified and Reviewed: Yes Code Status: Attempt Resuscitation ASA classification: 3-Severe systemic disease Is this case an emergency?: No
--- NOTE | 2019-03-02 11:23 | XRAY Report ---
Reason: New PICC line Procedure Date: 03/02/2019 Accession Number: [id number] / [id number] Procedure: XR - Chest for Line Placement CPT Code: FULL RESULT: EXAM: CHEST RADIOGRAPHY EXAM DATE: 03/02/2019 11:18 AM. CLINICAL HISTORY: New PICC line. COMPARISON: THORACIC SPINE W/O 10/01/2014 4:42 PM. TECHNIQUE: 1 view. FINDINGS: Tubes and lines: There is a right-sided PICC line tip of which terminates at the SVC right atrial junction. Lungs/Pleura: No focal opacities evident. No pleural effusion. No pneumothorax. Mediastinum: Within exam limitations, the cardiomediastinal contour is normal. Other: Dextroscoliosis of the thoracolumbar spine, with apparent absence of the lamina and spinous processes of T10 through at least L2. IMPRESSION: Right PICC line tip terminates at the junction of SVC and right atrium. RADIA
--- NOTE | 2019-03-02 11:43 | ANESTHESIA PROCEDURE NOTE ---
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 Procedure Start Time: 10:30 Anes. Procedure Stop Time: 10:55 Anesth Central Line Template - Central Line Central Line Preparation: Consent Obtained Central line type: Other (4Fr PICC line placed in Right Bascilic vein) Central line catheter tip site resides: Cavoatrial junction Central line aftercare: Secured, Placement confirmed, No complications Other Info/Details: Consent obtained for placement of PICC line. Patient was in a semi-fowlers position and his right arm was prepped with chlorohexadine and sterile drapes. Time out procedure was done and full gown, sterile gloves and mask were used. The right basilic vein was identified using ultrasound and a total of 3ml of 1% lidocaine was used to localize the upper arm. The vein was accessed using a 20G needle and the wire was advanced with ease. A #4.5 peel away sheath was inserted over the wire and the wire was removed. A 4Fr catheter that had been trimmed to 42cm was inserted and advanced with ease. I was unable to get the 3cg/tracking tech to recognize the catheter advancement. Catheter was advanced with 0cm of the catheter exposed. Sheath was removed and catheter was secured. Chest xray showed tip of the PICC in the cavoatrial junction. Patient tolerated the proced ure well.
[2019-03-02] MEDS: SODIUM CHLORIDE FLUSH 0.9% 10 ML SYRINGE IVP PRN ×3 (13:50→22:23)
[2019-03-02] MEDS ORDERED: DEXTROSE 5%-0.9% NACL 1,000 ML IV SCH (14:00)
[2019-03-02] MEDS ORDERED: LIDOCAINE MPF 1%-EPI 1:200000 30 ML VIAL ONE (14:54)
[2019-03-02] MEDS ORDERED: BUPIVACAINE 0.5%-EPI 1:200000 PF 30 ML VIAL ONE (14:54)
[2019-03-02] MEDS ORDERED: BUPIVACAINE 0.5%-EPI 1:200000 PF 30 ML VIAL SUBQ ONE ×2 (14:56)
[2019-03-02] MEDS ORDERED: LACTATED RINGERS 1,000 ML IV ONE (14:57)
--- NOTE | 2019-03-02 16:04 | PROVIDER PROGRESS NOTE ---
Assessment/Plan - Problem List (1) Decubitus ulcer Qualifiers: Pressure injury location: buttock Pressure injury stage: unstageable Laterality: right Qualified Code(s): L89.310 - Pressure ulcer of right buttock, unstageable Assessment/Plan: MRI suggests no osteomyelitis; plan debridement today in OR. Pt wishes to proceed. (2) Decubitus ulcer, hip Qualifiers: Pressure injury stage: unspecified pressure injury stage Laterality: left Qualified Code(s): L89.229 - Pressure ulcer of left hip, unspecified stage Assessment/Plan: abscess involving greater trochanter, possibly extending to bone/joint on MRI; likely infected decubitus; sepsis clinically resolved with limited I & D; plan: wide exploration and debridement. Discussed with pt who agrees. - Current Meds Current Meds: Current Medications Generic Name Dose Route Start Last Admin Trade Name Freq PRN Reason Stop Dose Admin Acetaminophen 650 mg 02/25/19 13:12 02/28/19 22:29 Tylenol PO 325 mg Q4HR PRN Administration Pain or Fever > 38C (100.4F) Hydrocodone Bitart/Acetaminophen 1 tab 02/24/19 20:31 03/02/19 09:18 Clemons 5/325 PO 1 tab Q4HR PRN Administration Pain 5 to 7 Ferrous Gluconate 324 mg 02/25/19 09:00 03/02/19 09:18 Fergon PO 324 mg DAILYWM WILFRID Administration Sodium Chloride 500 mls @ 20 mls/hr 02/25/19 16:42 03/02/19 09:10 Normal Saline 0.9% IV 20 mls/hr Q24H PRN Administration TKO RATE Meropenem 500 mg/ Sodium 100 mls @ 200 mls/hr 03/01/19 15:00 03/02/19 14:15 Chloride IV Infused TID WILFRID Infusion Dextrose/Sodium Chloride 1,000 mls @ 125 mls/hr 03/02/19 14:00 03/02/19 13:56 D5ns IV 125 mls/hr .Q8H WILFRID Administration Lactobacillus Rhamnosus 1 cap 02/27/19 09:00 03/02/19 09:17 Culturelle PO 1 cap DAILY WILFRID Administration Morphine Sulfate 2 mg 03/02/19 13:20 03/02/19 13:45 Morphine IVP 2 mg Q2HR PRN Administration PAIN Multivitamins/Minerals 1 tab 02/27/19 11:00 03/02/19 09:17 Theragran M PO 1 tab DAILYWM WILFRID Administration Polyethylene Glycol 17 gm 02/25/19 09:00 03/02/19 09:18 Miralax PO Not Given DAILY WILFRID Sodium Chloride 10 ml 02/24/19 20:31 03/02/19 13:50 Normal Saline Flush 0.9% IVP 10 ml PRN PRN Administration NEEDED PER PROVIDER ORDERS Sodium Chloride 10 ml 02/25/19 01:00 03/02/19 09:10 Normal Saline Flush 0.9% IVP 10 ml 0100,0900,1700 WILFRID Administration - Lab Result Lab results reviewed: Yes Fish Bone Diagrams: 02/28/19 05:12 02/28/19 05:10 - Diagnostic Imaging Results Diagnostic Imaging Results: Discussed with radiologist, Read contemporaneously Diagnostic Imaging Results Comments: MRI of pelvis shows right ischial decubitus does not extend to bone but does extend close to rectum. It also shows left hip abscess cavity likely extends to bone/joint, and is partially drained. - Additional Planning Condition/Complexity: Stable My Orders: My Active Orders 03/02/19 07:19 NPO except Meds [DIET] Plan Discussed with:: Patient, Other (hospitalist Dr. New) Time Spent: 15-30 minutes Subjective - Subjective Patient Reports: Feeling Better, Resting Comfortably, No Complaints Nursing Reports: No Complaints Objective Vital Signs: Vital Signs - 24 hr 03/02/19 03/02/19 03/02/19 00:15 08:04 15:55 Temperature 36.5 C 36.8 C 36.5 C Heart Rate [ 76 81 78 Brachial] Respiratory 16 16 16 Rate Blood Pressure 115/64 106/57 L 115/66 [Left Brachial artery] O2 Saturation 100 100 100 Oxygen O2 Source Room air I&O (Last 24 Hrs): Intake and Output Totals x24h 02/28/19 03/01/19 03/02/19 23:59 23:59 23:59 Intake Total 2254.666 1251.667 950 Balance 2254.666 1251.667 950 General: Alert, Oriented x3, Cooperative, No acute distress Extremities: Other (no change in wound appearance bilat compared to yesterday) - Results Results: Laboratory Results WBC 5.2 x10^3/uL (4.8-10.8) 02/28/19 05:12 RBC 4.78 10^6/uL (4.70-6.10) 02/28/19 05:12 Hgb 8.9 g/dL (14.0-18.0) L 02/28/19 05:12 Hct 30.6 % (42.0-52.0) L 02/28/19 05:12 MCV 64.1 fL (80.0-94.0) L 02/28/19 05:12 MCH 18.6 pg (27.0-31.0) L 02/28/19 05:12 MCHC 29.0 g/dL (32.0-36.0) L 02/28/19 05:12 RDW 32.3 % (12.0-15.0) H 02/28/19 05:12 Plt Count 306 10^3/uL (130-450) 02/28/19 05:12 MPV 8.2 fL (7.4-11.4) 02/28/19 05:12 Reticulocyte % (Auto) 2.34 % (0.5-2.3) H 02/24/19 16:20 Neut # (Auto) 3.4 10^3/uL (1.5-6.6) 02/28/19 05:12 Lymph # (Auto) 1.2 10^3/uL (1.5-3.5) L 02/28/19 05:12 Travis # (Auto) 0.4 10^3/uL (0.0-1.0) 02/28/19 05:12 Eos # (Auto) 0.2 10^3/uL (0.0-0.7) 02/28/19 05:12 Baso # (Auto) 0.0 10^3/uL (0.0-0.1) 02/28/19 05:12 Absolute Nucleated RBC 0.00 x10^3/uL 02/28/19 05:12 Total Counted 100 02/25/19 06:10 Band Neuts % (Manual) 2 % (0-10) 02/25/19 06:10 Abnorm Lymph % (Manual) 0 % 02/25/19 06:10 Nucleated RBC % 0.0 /100WBC 02/28/19 05:12 Neutrophils # (Manual) 7.4 10^3/uL (1.5-6.6) H 02/25/19 06:10 Lymphocytes # (Manual) 0.9 10^3/uL (1.5-3.5) L 02/25/19 06:10 Monocytes # (Manual) 0.6 10^3/uL (0.0-1.0) 02/25/19 06:10 Eosinophils # (Manual) 0.0 10^3/uL (0-0.7) 02/25/19 06:10 Basophils # (Manual) 0.1 10^3/uL (0-0.1) 02/25/19 06:10 Differential Comment MANUAL DIFFERENTIAL 02/25/19 06:10 Manual Slide Review Indicated 02/28/19 05:12 WBC Morphology NORMAL APPEARANCE (NORMAL) 02/25/19 06:10 Platelet Estimate NORMAL (130-450,000) (NORMAL) 02/28/19 05:12 Platelet Morphology NORMAL APPEARANCE (NORMAL) 02/27/19 04:43 RBC Morph Micro Appear 3+ ANISOCYTOSIS (NORMAL) 2+ POIKILOCYTOSIS (NORMAL) 3+ HYPOCHROMASIA (NORMAL) 2+ MICROCYTOSIS (NORMAL) 1+ TEARDROP CELLS (NORMAL) 1+ OVALOCYTES (NORMAL) 1+ SCHISTOCYTES (NORMAL) 02/24/19 16:20 RBC Morph Micro Appear 3+ ANISOCYTOSIS (NORMAL) 2+ POIKILOCYTOSIS (NORMAL) 3+ HYPOCHROMASIA (NORMAL) 2+ MICROCYTOSIS (NORMAL) 1+ TEARDROP CELLS (NORMAL) 1+ OVALOCYTES (NORMAL) 1+ SCHISTOCYTES (NORMAL) 02/24/19 16:20 RBC Morph Micro Appear 3+ ANISOCYTOSIS (NORMAL) 2+ POIKILOCYTOSIS (NORMAL) 3+ HYPOCHROMASIA (NORMAL) 2+ MICROCYTOSIS (NORMAL) 1+ TEARDROP CELLS (NORMAL) 1+ OVALOCYTES (NORMAL) 1+ SCHISTOCYTES (NORMAL) 02/24/19 16:20 RBC Morph Micro Appear 3+ ANISOCYTOSIS (NORMAL) 2+ HYPOCHROMASIA (NORMAL) 2+ MICROCYTOSIS (NORMAL) 1+ POLYCHROMASIA (NORMAL) 02/25/19 06:10 RBC Morph Micro Appear 3+ ANISOCYTOSIS (NORMAL) 2+ HYPOCHROMASIA (NORMAL) 2+ MICROCYTOSIS (NORMAL) 1+ POLYCHROMASIA (NORMAL) 02/25/19 06:10 RBC Morph Micro Appear 3+ ANISOCYTOSIS (NORMAL) 2+ HYPOCHROMASIA (NORMAL) 2+ MICROCYTOSIS (NORMAL) 1+ POLYCHROMASIA (NORMAL) 02/25/19 06:10 RBC Morph Micro Appear 3+ ANISOCYTOSIS (NORMAL) 2+ HYPOCHROMASIA (NORMAL) 2+ MICROCYTOSIS (NORMAL) 1+ POLYCHROMASIA (NORMAL) 02/25/19 06:10 RBC Morph Micro Appear 2+ ANISOCYTOSIS (NORMAL) 2+ POIKILOCYTOSIS (NORMAL) 1+ POLYCHROMASIA (NORMAL) 2+ HYPOCHROMASIA (NORMAL) 1+ MICROCYTOSIS (NORMAL) 1+ MACROCYTOSIS (NORMAL) 02/26/19 05:10 RBC Morph Micro Appear 2+ ANISOCYTOSIS (NORMAL) 2+ POIKILOCYTOSIS (NORMAL) 1+ POLYCHROMASIA (NORMAL) 2+ HYPOCHROMASIA (NORMAL) 1+ MICROCYTOSIS (NORMAL) 1+ MACROCYTOSIS (NORMAL) 02/26/19 05:10 RBC Morph Micro Appear 2+ ANISOCYTOSIS (NORMAL) 2+ POIKILOCYTOSIS (NORMAL) 1+ POLYCHROMASIA (NORMAL) 2+ HYPOCHROMASIA (NORMAL) 1+ MICROCYTOSIS (NORMAL) 1+ MACROCYTOSIS (NORMAL) 02/26/19 05:10 RBC Morph Micro Appear 2+ ANISOCYTOSIS (NORMAL) 2+ POIKILOCYTOSIS (NORMAL) 1+ POLYCHROMASIA (NORMAL) 2+ HYPOCHROMASIA (NORMAL) 1+ MICROCYTOSIS (NORMAL) 1+ MACROCYTOSIS (NORMAL) 02/26/19 05:10 RBC Morph Micro Appear 2+ ANISOCYTOSIS (NORMAL) 2+ POIKILOCYTOSIS (NORMAL) 1+ POLYCHROMASIA (NORMAL) 2+ HYPOCHROMASIA (NORMAL) 1+ MICROCYTOSIS (NORMAL) 1+ MACROCYTOSIS (NORMAL) 02/26/19 05:10 RBC Morph Micro Appear 2+ ANISOCYTOSIS (NORMAL) 2+ POIKILOCYTOSIS (NORMAL) 1+ POLYCHROMASIA (NORMAL) 2+ HYPOCHROMASIA (NORMAL) 1+ MICROCYTOSIS (NORMAL) 1+ MACROCYTOSIS (NORMAL) 02/26/19 05:10 RBC Morph Micro Appear 2+ ANISOCYTOSIS (NORMAL) 2+ POIKILOCYTOSIS (NORMAL) 1+ POLYCHROMASIA (NORMAL) 2+ HYPOCHROMASIA (NORMAL) 1+ MICROCYTOSIS (NORMAL) 1+ MACROCYTOSIS (NORMAL) 1+ OVALOCYTES (NORMAL) 02/27/19 04:43 RBC Morph Micro Appear 2+ ANISOCYTOSIS (NORMAL) 2+ POIKILOCYTOSIS (NORMAL) 1+ POLYCHROMASIA (NORMAL) 2+ HYPOCHROMASIA (NORMAL) 1+ MICROCYTOSIS (NORMAL) 1+ MACROCYTOSIS (NORMAL) 1+ OVALOCYTES (NORMAL) 02/27/19 04:43 RBC Morph Micro Appear 2+ ANISOCYTOSIS (NORMAL) 2+ POIKILOCYTOSIS (NORMAL) 1+ POLYCHROMASIA (NORMAL) 2+ HYPOCHROMASIA (NORMAL) 1+ MICROCYTOSIS (NORMAL) 1+ MACROCYTOSIS (NORMAL) 1+ OVALOCYTES (NORMAL) 02/27/19 04:43 RBC Morph Micro Appear 2+ ANISOCYTOSIS (NORMAL) 2+ POIKILOCYTOSIS (NORMAL) 1+ POLYCHROMASIA (NORMAL) 2+ HYPOCHROMASIA (NORMAL) 1+ MICROCYTOSIS (NORMAL) 1+ MACROCYTOSIS (NORMAL) 1+ OVALOCYTES (NORMAL) 02/27/19 04:43 RBC Morph Micro Appear 2+ ANISOCYTOSIS (NORMAL) 2+ POIKILOCYTOSIS (NORMAL) 1+ POLYCHROMASIA (NORMAL) 2+ HYPOCHROMASIA (NORMAL) 1+ MICROCYTOSIS (NORMAL) 1+ MACROCYTOSIS (NORMAL) 1+ OVALOCYTES (NORMAL) 02/27/19 04:43 RBC Morph Micro Appear 2+ ANISOCYTOSIS (NORMAL) 2+ POIKILOCYTOSIS (NORMAL) 1+ POLYCHROMASIA (NORMAL) 2+ HYPOCHROMASIA (NORMAL) 1+ MICROCYTOSIS (NORMAL) 1+ MACROCYTOSIS (NORMAL) 1+ OVALOCYTES (NORMAL) 02/27/19 04:43 RBC Morph Micro Appear 2+ ANISOCYTOSIS (NORMAL) 2+ POIKILOCYTOSIS (NORMAL) 1+ POLYCHROMASIA (NORMAL) 2+ HYPOCHROMASIA (NORMAL) 1+ MICROCYTOSIS (NORMAL) 1+ MACROCYTOSIS (NORMAL) 1+ OVALOCYTES (NORMAL) 02/27/19 04:43 RBC Morph Micro Appear 3+ ANISOCYTOSIS (NORMAL) 2+ MICROCYTOSIS (NORMAL) 3+ HYPOCHROMASIA (NORMAL) 02/28/19 05:12 RBC Morph Micro Appear 3+ ANISOCYTOSIS (NORMAL) 2+ MICROCYTOSIS (NORMAL) 3+ HYPOCHROMASIA (NORMAL) 02/28/19 05:12 RBC Morph Micro Appear 3+ ANISOCYTOSIS (NORMAL) 2+ MICROCYTOSIS (NORMAL) 3+ HYPOCHROMASIA (NORMAL) 02/28/19 05:12 Absolute Retic 0.093 10^6/uL (0.020-0.110) 02/24/19 16:20 Sodium 135 mmol/L (135-145) 02/28/19 05:10 Potassium 4.5 mmol/L (3.5-5.0) 02/28/19 05:10 Chloride 101 mmol/L (101-111) 02/28/19 05:10 Carbon Dioxide 24 mmol/L (21-32) 02/28/19 05:10 Anion Gap 10.0 (6-13) 02/28/19 05:10 BUN 15 mg/dL (6-20) 02/28/19 05:10 Creatinine 0.4 mg/dL (0.6-1.2) L 02/28/19 05:10 Estimated GFR (MDRD) 308 (>89) 02/28/19 05:10 Glucose 84 mg/dL (70-100) 02/28/19 05:10 Lactic Acid 0.9 mmol/L (0.5-2.2) 02/24/19 16:20 Calcium 8.9 mg/dL (8.5-10.3) 02/28/19 05:10 Iron < 6 ug/dL (45-182) L 02/24/19 16:20 TIBC 386 ug/dL (250-450) 02/24/19 16:20 Transferrin 276 mg/dL (180-329) 02/24/19 16:20 Ferritin 9.7 ng/mL (23.9-336.2) L 02/24/19 16:20 Total Bilirubin 0.8 mg/dL (0.2-1.0) 02/24/19 16:20 AST 16 IU/L (10-42) 02/24/19 16:20 ALT 13 IU/L (10-60) 02/24/19 16:20 Alkaline Phosphatase 55 IU/L (42-121) 02/24/19 16:20 Lactate Dehydrogenase 141 IU/L (91-225) 02/24/19 16:20 C-Reactive Protein 10.2 mg/dL (0-1.0) H 03/01/19 08:27 Total Protein 8.0 g/dL (6.7-8.2) 02/24/19 16:20 Albumin 3.9 g/dL (3.2-5.5) 02/24/19 16:20 Globulin 4.1 g/dL (2.1-4.2) 02/24/19 16:20 Albumin/Globulin Ratio 1.0 (1.0-2.2) 02/24/19 16:20 Lipase 33 U/L (22-51) 02/24/19 16:20 Vitamin B12 548 pg/mL (180-914) 02/24/19 16:20 Urine Color BROWN 02/24/19 16:03 Urine Clarity CLOUDY (CLEAR) 02/24/19 16:03 Urine pH 7.5 PH (5.0-7.5) 02/24/19 16:03 Ur Specific [place] 1.020 (1.002-1.030) 02/24/19 16:03 Urine Protein 100 mg/dL (NEGATIVE) H 02/24/19 16:03 Urine Glucose (UA) NEGATIVE mg/dL (NEGATIVE) 02/24/19 16:03 Urine Ketones NEGATIVE mg/dL (NEGATIVE) 02/24/19 16:03 Urine Occult Blood LARGE (NEGATIVE) H 02/24/19 16:03 Urine Nitrite POSITIVE (NEGATIVE) H 02/24/19 16:03 Urine Bilirubin NEGATIVE (NEGATIVE) 02/24/19 16:03 Urine Urobilinogen 0.2 (NORMAL) E.U./dL (NORMAL) 02/24/19 16:03 Ur Leukocyte Esterase MODERATE (NEGATIVE) H 02/24/19 16:03 Urine RBC 11-25 /HPF (0-5) H 02/24/19 16:03 Urine WBC >25 /HPF (0-3) H 02/24/19 16:03 Urine WBC Clumps PRESENT 02/24/19 16:03 Ur Squamous Epith Cells RARE Squamous (<= Few) 02/24/19 16:03 Urine Crystals 3-5 Triple Phosphate /LPF 02/24/19 16:03 Urine Bacteria Many /HPF (None Seen) H 02/24/19 16:03 Urine Yeast PRESENT 02/24/19 16:03 Ur Microscopic Review INDICATED 02/24/19 16:03 Urine Culture Comments INDICATED 02/24/19 16:03 Nasal Screen MRSA (PCR) NEGATIVE (NEGATIVE) 02/24/19 20:00 Influenza A (Rapid) Negative (Negative) 02/24/19 17:22 Influenza B (Rapid) Negative (Negative) 02/24/19 17:22 Blood Type A POSITIVE 02/24/19 18:04 Antibody Screen NEGATIVE 02/24/19 18:04 Crossmatch IS Only See Detail 02/24/19 18:04 - Procedures Procedures: Procedures CLOSED RED-INT FIX FEMUR (07/14/14) PACKED CELL TRANSFUSION (07/14/14) Sepsis Event Note (H) - Evaluation Current Stage of Sepsis: Sepsis Possible source of Sepsis: positive: Genitourinary, Skin/soft tissue ABX Reporting Has patient been on IV antibiotics over the past 48 hours?: Yes
--- NOTE | 2019-03-02 16:09 | OPERATIVE REPORT ---
Operative Report - General Admit Date: 02/24/19 Procedure Date: 03/02/19 Planned Procedure: Debridement of right ischial decubitus ulcer I & D left hip abscess Pre-Op Diagnosis: right ischial decubitus ulcer; left hip abscess Procedure Performed: 1. Debridement of right ischial decubitus ulcer 2. I & D left hip abscess 3. Debridement of left hip/trochanteric decubitus ulcer. Post Op Diagnosis: right ischial decubitus ulcer, Stage 3; left hip/trochanteric abscess & ulc - Procedure Note Primary Surgeon: Marshal Moon MD [facility] Anesthesia Provider: Nikhil Sanchez MD Anesthesia Technique: Local, MAC Pathology: debridement tissue from both sites Estimated Blood Loss (mL): 10 Indications: Non healing right ischial decubitus; left hip abscess with sepsis Findings: Stage 3 ulcer right ischium Stage 4 ulcer left hip/trochanter, infected Complications: none
--- NOTE | 2019-03-02 16:46 | OPERATIVE REPORT ---
DATE OF SERVICE: 03/02/2019 Physician: Marshal Moon MD PREOPERATIVE DIAGNOSES 1. Right ischial decubitus ulcer. 2. Left hip abscess. POSTOPERATIVE DIAGNOSES 1. Stage 3 right ischial decubitus ulcer. 2. Infected stage 4 left hip and trochanteric decubitus ulcer with abscess. PROCEDURES 1. Debridement of right ischial decubitus ulcer. 2. Incision and drainage of left hip abscess. 3. Debridement of left hip/trochanteric decubitus ulcer. ANESTHESIA: Local plus monitored anesthesia care by Nikhil Sanchez MD ESTIMATED BLOOD LOSS: 10 mL. COMPLICATIONS: None. DRAINS: None. FINDINGS: The right ischial decubitus ulcer was 1.5 x 2 cm length x width and 1 cm in depth prior to debridement. Following debridement down to viable periosteum, wound measurements were 3 cm in length x 2 cm in width x 2 cm in depth. Total surface area debrided on the right was 6 sq. cm. With regard to the left hip, initial wound was 5 mm in diameter with surrounding, what appeared to be, necrotic skin. Following debridement, the left hip wound measured 2.75 cm in length x 2.5 cm in width x 1.5 cm in depth, extending down to a bone fragment as well as the bursa of the left greater trochanter. Total surface area debrided on the left was 6.875 sq. cm. 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 He was admitted several days ago with sepsis due to a left hip infection. An abscess was drained in the emergency room, which subsequently grew out MSSA. He was treated with antibiotics with improvement. It was felt that his abscess; however, was inadequately drained, and in addition, he had an unstageable ulcer on his right ischium that warranted debridement. He was advised to undergo debridement of the right ischial decubitus and incision and drainage with possible debridement of the left hip abscess as well. TECHNIQUE: After informed consent, the patient was taken to the operating room and placed in a prone position, and his buttocks and hip were prepared with iodoform solution and draped in the usual sterile fashion. Marcaine 0.5% with epinephrine was used for local infiltration anesthesia, 20 mL was used. Beginning with the right ischial decubitus, using sharp debridement with a #15 blade, #10 blade, and a 10mm curette, necrotic tissue was debrided down to viable periosteum. Thick callus was present, the necrotic portions of which were debrided, but the viable portions that remained were left in situ, as they showed good vascularity. Resulting wound measurements were noted above. Hemostasis achieved with electrocautery, pressure and time. The wound was dressed with Aquacel followed by a Tegaderm cover pad. Attention was turned to the left hip, where the necrotic skin surrounding the old I and D site was excised with a #15 blade, exposing necrotic subcutaneous tissue, bursa, and with tracking to a fragment of bone, likely from his left hip was evident. Necrotic tissue was debrided and sent to Pathology. Cultures were obtained of the wound, and after hemostasis was achieved and the wound irrigated with saline solution, a dressing of Aquacel, followed by a dry sterile gauze dressing was applied, followed by Tegaderm. It should be noted that on the left side, necrotic tissue was sent for pathologic evaluation and deep wound cultures were obtained as well. The procedure was then terminated. The patient was transferred out of the operating room in satisfactory condition. Sponge and needle counts were correct x2. No drains were used. TD: 03/02/2019 16:27 BEBA
[2019-03-03] MEDS: MORPHINE 2 MG/ML SYRINGE IVP PRN (00:30)
[2019-03-03] MEDS: SODIUM CHLORIDE FLUSH 0.9% 10 ML SYRINGE IVP SCH ×2 (00:30→08:10)
[2019-03-03] MEDS: HYDROcod/ACETAM 5/325 MG TABLET PO PRN ×2 (00:30→05:47)
[2019-03-03] MEDS: MEROPENEM 500 MG in SODIUM CHLORIDE 0.9% MINIBAG 100 ML IV SCH ×2 (05:47→12:23)
[2019-03-03] MEDS ORDERED: HYDROcod/ACETAM 10 MG/325 MG TABLET PO PRN (07:45)
--- NOTE | 2019-03-03 07:52 | Discharge Plan ---
"Discharge Plan for SNF / [facility] - Discharge Plan And Transition Orders Disposition: 03 SNF DC/Xfer Condition: Good Allergies and Adverse Reactions: Allergies Allergy/AdvReac Type Severity Reaction Status Date / Time No Known Drug Allergies Allergy Verified 03/05/18 10:40 - SNF / [facility] Transition Orders Admit to (Facility): [facility] Under the care of (Name): Sanjay Espinoza II Discharge Diagnosis: (1) Sepsis resolved (2) Multiple Decubitus ulcers, Right hip and Left Ischium; With associated abscess formation. Status post incision and debridement and drainage. Present on admission. Treated and improved (3) Infection due to Staphylococcus aureus, MSSA. Treated and improved (4) Dermal sinus tract of lumbosacral region. (5) UTI (urinary tract infection), bacterial, Proteus mirabilis. Resolving (6) Microcytic hypochromic anemia/Iron deficiency anemia. Associated with chronic blood loss anemia status post 2 units of packed red blood cells; stable (7) Paraplegic spinal paralysis. Stable Medicare Certification Statement: I certify that [facility] prison care is medically necessary on a continuing basis for any of the conditions for which she/he is receiving care during hospitalization. Notify PCP of admission and forward orders to primary provider for signature. Weight on admission and: Weekly Other Notification Orders: Call PCP immediately if patient develops dyspnea, chest pain/tightness or edema. Parents counseled regarding signs of infection and how to minimize scarring. Pt comfortable with plan and will return if he worsens. House Bowel Program: Yes Additional Bowel Program Orders: If no BM after 2 days, nurse may give M.O.M. 30ml PO PRN and/or ducolax Supp 1 MI and/or FARHAN 250mg P.O., and/or senna 1-2 tabs PO. On day 3 nurse may give repeat above order until residents constipation is resolved. left hip wound dressing change daily and prn: irrigate with saline, apply aquacel, then cover pad, or as direct by wound care nurse specialist right ischial decubitus wound care: QOD and prn: irrigate with saline, then aquacel, then cover pad or as directed by wound care nurse specialist Annual Influenza Vaccine (between Jul 30 and February 26): Yes Two-step PPD per [facility] [phone] or approved exception documents: No Treatments & Other Orders: Patient will continue with wound care orders placed by ALICIA VILLAVICENCIO here at [facility]. Post op wound care orders: Left hip wound dressing change daily and prn: irrigate with saline, apply aquacel, then cover pad, or as direct by wound care nurse specialist. right ischial decubitus wound care: QOD and prn: irrigate with saline, then aquacel, then cover pad or as directed by wound care nurse specialist Medication Orders: PLEASE REFER TO THE DISCHARGE MEDICATION LIST. Insulin Orders?: No - Medications New Prescriptions: HYDROcodone/ACET 10/325 [[place] 10 mg/325 mg] 1 tab PO Q4HR PRN #60 tablet PRN Reason: Pain Ertapenem [INVanz] 1 gm IV Q24H #30 vial Ferrous Sulfate 325 mg PO TIDWM #90 tablet - Diet Texture: Regular Liquids: Thin May have monthly special meal: Yes - Therapies | Activity Rehabilitation Potential: Maximize functional status, Return to independent living, Maintain present ADL Functional Activity: Activity as Tolerated Assistance Devices: Wheelchair Additional Instructions: Surgical wound cultures and specimen to follow. Patient to complete a 4-week course of IV Invanz. Follow Up: PCP to follow-up in 1 or 2 weeks. To follow-up with primary orthopedic surgeon in 2-3 weeks."
--- NOTE | 2019-03-03 08:02 | DISCHARGE SUMMARY ---
"Discharge Summary Admit Date: 02/24/19 Discharge Date: 03/03/19 Discharging Provider: Dr. New Primary Care Provider: Sanjay Espinoza II Code Status: Attempt Resuscitation Condition at Discharge: Good Discharge Disposition: SNF DC/Xfer Discharge Facility Name: [facility] - DIAGNOSES Admission Diagnoses: (1) Sepsis (2) Abscess of right hip (3) Decubitus ulcer, hip (4) UTI (urinary tract infection) (5) Severe anemia (6) Chronic back pain Discharge Diagnoses with Status of Each Condition: (1) Sepsis resolved (2) Multiple Decubitus ulcers, Right hip and Left Ischium; With associated abscess formation. Status post incision and debridement and drainage. Present on admission. Treated and improved (3) Infection due to Staphylococcus aureus, MSSA. Treated and improved (4) Dermal sinus tract of lumbosacral region. (5) UTI (urinary tract infection), bacterial, Proteus mirabilis. Resolving (6) Microcytic hypochromic anemia/Iron deficiency anemia. Associated with ch ronic blood loss anemia status post 2 units of packed red blood cells; stable (7) Paraplegic spinal paralysis. Stable - HPI History of Present Illness: Patient is a 28 y/o male who is paraplegic and presents to the ED with complain of new onset right hip pain and feeling feverish. He resides at [facility] where his temperature was noted to be 101F. He has chronic unstageable sacral decubitus ulcer on the right which appears to be tracking. He has had this since 2004. However the soreness on the right is new. In the ED about 4-5 cc of cloudy fluid which had a smell to it was aspirated from the hip and sent for culture. Further work up included a UA which was highly suggestive of an infection. He was also found to have a hemoglobin of 6 with a previous reading of 14. He reports blood in his urine lately for which he saw his PCP. He was guaiac negative in the ED. He denies chest pain, GA, abd pain, nausea or vomiting. His lower extremities are atrophic. He gets around using a wheelchair after transferring using a paraslider. He is paraplegic from a surgical complication to remove a spinal tumor done in his home country of [facility]. - CONSULTS | PROCEDURES Consultations: Dr. Marshal Moon surgery service, [facility] burglary investigator Procedures: Status post PICC line placement Patient had a right ischial decubitus ulcer stage III/IV, Status post debridement x1 with packing. Infected stage IV left hip and trochanteric decubitus ulcer with abscess status post incision drainage and department x3. Preoperatively patient required 2 units of packed red blood cells for symptomatic chronic blood loss anemia. 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 Patient has had these decubitus ulcers since 2004 as patient ambulates via wheelchair with constant pressure. Patient does not have air mattress at usp. Patient had 4-5 cc of cloudy fluid expressed out in the emergency department which was reopened on medical surgical floor with MAC nurse who eventually packed the decubitus ulcer. Patient was anemic and likely had chronic blood loss anemia however his occult blood test was negative in the ED. Patient denied fevers chills nausea vomiting chest pain or shortness of breath. Patient has atrophic lower extremities and ambulates feels wheelchair after transferring using a paraslider. Patient was initially admitted to the ICU and was not placed on pressors and given aggressive IV empiric antibiotics. Stage III/IV pressure injury to his Right ischial decubitus ulcer, Status post debridement x2. Infected stage IV left hip and trochanteric decubitus ulcer with abscess Status post incision and drainage And debridement x3 with the initial packing done on MedSur floor. Stage IV pressure injury to the right proximal buttock has wound bed of clean muscle with exposed severed tendon. Periwound is hardened necrotic/callus-like tissue extending 2.5 cm beyond wound edges with exposed devitalized vascular structures. This tissue extends down the inner w alls of the wound 1.5 cm. Status post bedside debridement. Right ischial decubitus ulcer, stage 4, in need of debridement; doesn't appear infected clinically at present. Due to the unavailability of staff [facility] for an MRI patient was sent to [facility] which was read by radiolo [facility] and reviewed by our surgeon to have no definitive evidence of osteomized to the pelvic bone however unable to rule out Osteomyelitis to the left femur/hip where patient has hardware. Patient had undergone thorough debridement with incision and and drainage to the left hip trochanteric decubitus ulcer with abscess drainage wound specimens were sent out no bone biopsy done. Patient Was then placed on IV Merrem throughout interim to cover for anaerobes as well as MSSA which grew out on one of patient's drained abscess that was taken from the emergency department. Initial CT abdomen pelvis did not reveal osteomyelitis, with underlying spina bifida and scoliosis present. Patient had 2 sets of blood cultures which were negative growth to date. Patient did have also a asymptomatic Proteus UTI however unable to feel dysuria or even signs and symptoms of cystitis was initially treated as well with Rocephin/keflex and then transition over to Merrem which Proteus is sensitive to. Patient's and date for UTI would technically be 03/06/19 for a total of 10 days of uncomplicated Proteus UTI. Due to the need for long-term IV antibiotics patient was placed on lactobacillus. Patient due to nutritional deficiencies and chronic blood loss anemia for which he received 2 units of packed red blood cells for hemoglobin 6.3 on admission with a negative occult blood. Patient was placed on IV iron for total 3 days with supplemental ferrous sulfate. Patient will likely need GI outpatient workup as outpatient. Vital signs were hemodynamically stable however due to patient's paraplegia some of labile blood pressures which were addressed with midodrine may be attributable to automatic dysfunction. Patient had a PICC line placement without complications. Post op wound care orders: Left hip wound dressing change daily and prn: irrigate with saline, apply aquacel, then cover pad, or as direct by wound care nurse specialist right ischial decubitus wound care: QOD and prn: irrigate with saline, then aquacel, then cover pad or as directed by wound care nurse specialist. Patient will receive a total of 4 weeks of IV Invanz for an end date of March 31, 2019. Patient instructed to follow-up with PCP in 1 or 2 weeks, Dr. Moon in 2-3 weeks and with primary orthopedic surgeon in 2-3 weeks to reevaluate patient bone fragment that was seen in surgical debridement of left greater [place]. - ALLERGIES Allergies/Adverse Reactions: Allergies Allergy/AdvReac Type Severity Reaction Status Date / Time No Known Drug Allergies Allergy Verified 03/05/18 10:40 - MEDICATIONS Home Medications: Ambulatory Orders Medication Instructions Recorded Confirmed Ibuprofen 400 mg PO DAILY 02/25/19 02/25/19 Acetaminophen [Tylenol] 650 mg PO Q4HR PRN tablet 03/03/19 Ertapenem [INVanz] 1 gm IV Q24H #30 vial 03/03/19 Ferrous Sulfate 325 mg PO TIDWM #90 tablet 03/03/19 HYDROcodone/ACET 10/325 [[place] 10 1 tab PO Q4HR PRN #60 tablet 03/03/19 mg/325 mg] Lactobacillus Rhamnosus GG 1 cap PO DAILY capsule 03/03/19 [Culturelle] Midodrine 5 mg PO TID PRN tablet 03/03/19 Multivitamin W/Minerals [Theragran 1 tab PO DAILYWM tablet 03/03/19 M] Polyethylene Glycol 3350 [Miralax] 17 gm PO DAILY packet 03/03/19 - PHYSICAL EXAM AT DISCHARGE General Appearance: positive: No acute distress, Alert Eyes Bilateral: positive: Normal inspection, PERRL, EOMI ENT: positive: ENT inspection nml, Pharynx nml, No signs of dehydration Neck: positive: Nml inspection, Thyroid nml, No JVD, Trachea midline. negative: Thyromegaly Respiratory: positive: Chest non-tender, No respiratory distress, Breath sounds nml Cardiovascular: positive: Regular rate & rhythm, No murmur, No gallop Peripheral Pulses: positive: 2+ Abdomen: positive: Non-tender, No organomegaly, Nml bowel sounds, No distention. negative: Tenderness Skin: positive: No rash, Other (Postoperative surgical wound sites are clean dry and intact. Decubitus ulcers to the left hip as well as the right ischial region appeared to be clean dry and intact with no necrotic borders) Extremities: positive: Other (Atrophic muscles due to existing paraplegia.) Neurologic/Psychiatric: positive: Oriented x3, CN's nml (2-12) - LABS Result Diagrams: 02/28/19 05:12 02/28/19 05:10 - DIAGNOSTIC IMAGING Diagnostic Imaging Results: Final report reviewed - SEPSIS Current Stage of Sepsis: Resolved Possible source of Sepsis: Genitourinary, Skin/soft tissue - QUALITY (Female Hip Fx Only) Was patient sent home on osteoporosis medication?: No - FOLLOW UP Follow Up: Follow-up with PCP in 1 or 2 weeks. Follow-up with Dr. Moon in 2-3 weeks. Follow-up with primary orthopedic surgeon in 2-3 weeks - TIME SPENT Time Spent in Discharge (Minutes): 35"
[2019-03-03] MEDS: MULTIVITAMIN W/MINERALS TABLET PO SCH (08:09)
[2019-03-03] MEDS: LACTOBACILLUS RHAMNOSUS GG CAPSULE PO SCH (08:09)
[2019-03-03] MEDS: FERROUS GLUCONATE 324 MG TABLET PO SCH (08:09)
[2019-03-03] MEDS: POLYETHYLENE GLYCOL 3350 17 GM PACKET PO SCH (08:09)
[2019-03-03 12:29] VITALS: BP 108/66
== END 2019-03-03 14:00 | DRG 853 ==
LOC: EDBD → ED 15:54 → ICU 18:23 → MS2 02-27 00:01 → ICU 02-27 21:42
PROVIDERS: ADMIT Internal Medicine; ATTEND Family Medicine
PROC: 30233N1 Transfusion of Nonautologous Red Blood Cells into Peripheral Vein, Percutaneous Approach (ICD-10-PCS; 2019-02-24)
PROC: 30233N1 Transfusion of Nonautologous Red Blood Cells into Peripheral Vein, Percutaneous Approach (ICD-10-PCS; 2019-02-25)
PROC: 0JBM0ZZ Excision of Left Upper Leg Subcutaneous Tissue and Fascia, Open Approach (ICD-10-PCS; principal; 2019-03-02 14:30)
PROC: 0JBL0ZZ Excision of Right Upper Leg Subcutaneous Tissue and Fascia, Open Approach (ICD-10-PCS; 2019-03-02 14:30)
DX: A41.9 Sepsis, unspecified organism (principal); L89.224 Pressure ulcer of left hip, stage 4; L89.214 Pressure ulcer of right hip, stage 4; L89.314 Pressure ulcer of right buttock, stage 4; N30.00 Acute cystitis without hematuria; G82.20 Paraplegia, unspecified; L02.416 Cutaneous abscess of left lower limb; L89.150 Pressure ulcer of sacral region, unstageable; R32 Unspecified urinary incontinence; B96.4 Proteus (mirabilis) (morganii) as the cause of diseases classified elsewhere; N30.20 Other chronic cystitis without hematuria; F32.9 Major depressive disorder, single episode, unspecified; F41.9 Anxiety disorder, unspecified; F43.10 Post-traumatic stress disorder, unspecified; G89.29 Other chronic pain; M54.9 Dorsalgia, unspecified; M41.80 Other forms of scoliosis, site unspecified; D50.0 Iron deficiency anemia secondary to blood loss (chronic); B95.61 Methicillin susceptible Staphylococcus aureus infection as the cause of diseases classified elsewhere
CPT/HCPCS: 10060; 36415; 71045; 74178; 80048; 80053; 81001; 81003; 82607; 82728; 83540; 83605; 83615; 83690; 84466; 85025; 85044; 86140; 86850; 86900; 86901; 86920; 87040; 87070; 87077; 87086; 87150; 87181; 87205; 87275; 87276; 96374; 99284

== ENCOUNTER 2019-03-01 11:08 | Outpatient (CLI) | payer MEDICAID | END 2019-03-01 11:09 | disposition short-term general hospital (02) | LOC: EMS 11:08 | PROVIDERS: ATTEND Surgery | DX: Z74.01 Bed confinement status (principal); Z76.89 Persons encountering health services in other specified circumstances; L89.224 Pressure ulcer of left hip, stage 4; L02.416 Cutaneous abscess of left lower limb; B95.62 Methicillin resistant Staphylococcus aureus infection as the cause of diseases classified elsewhere | CPT/HCPCS: A0425; A0428; A0999 ==

== ENCOUNTER 2019-03-01 13:09 | Outpatient (CLI) | payer MEDICAID | END 2019-03-01 13:10 | disposition critical access hospital (66) | LOC: EMS 13:09 | PROVIDERS: ATTEND Surgery | DX: Z74.01 Bed confinement status (principal); Z76.89 Persons encountering health services in other specified circumstances; L89.224 Pressure ulcer of left hip, stage 4; L02.416 Cutaneous abscess of left lower limb; B95.62 Methicillin resistant Staphylococcus aureus infection as the cause of diseases classified elsewhere | CPT/HCPCS: A0425; A0428; A0999 ==

== ENCOUNTER 2023-10-03 20:04 | Outpatient (CLI) | payer MEDICAID | END 2023-10-03 20:05 | disposition critical access hospital (66) | LOC: EMS 20:04 | DX: L08.0 Pyoderma (principal); G82.20 Paraplegia, unspecified | CPT/HCPCS: A0425; A0429 ==

== ENCOUNTER 2023-10-03 20:23 | Emergency (ER) | payer MEDICAID ==
--- NOTE | 2023-10-03 20:30 | ED Physician Documentation ---
History of Present Illness - Stated complaint Stated Complaint: R SHOULDER RASH - Additonal information Additional information: 33-year-old male who is a paraplegic presents to the emergency department via EMS from [facility] for evaluation of a painful b listering rash on his right anterior chest and shoulder that began about 3 days ago. No fevers. He does have a history of chickenpox but has not yet received the shingles vaccine. Review of Systems Constitutional: denies: Fever Skin: reports: Rash Musculoskeletal: reports: Reviewed and negative Neurologic: reports: Reviewed and negative PD PAST MEDICAL HISTORY - Past Medical History Cardiovascular: None Respiratory: None Endocrine/Autoimmune: None GI: None : Incontinence, Chronic bladder infection HEENT: None Psych: Depression, Anxiety, Post traumatic stress disorder Musculoskeletal: Scoliosis, Chronic back pain Derm: Other drug resistant infections - Past Surgical History Past Surgical History: Yes Ortho: Spine surgery, Other (ORIF left femur) - Present Medications Home Medications: Ambulatory Orders Medication Instructions Recorded Confirmed Ibuprofen 400 mg PO DAILY 02/25/19 02/25/19 Acetaminophen [Tylenol] 650 mg PO Q4HR PRN tablet 03/03/19 Ertapenem [INVanz] 1 gm IV Q24H #30 vial 03/03/19 Ferrous Sulfate 325 mg PO TIDWM #90 tablet 03/03/19 HYDROcodone/ACET 10/325 [[place] 10 1 tab PO Q4HR PRN #60 tablet 03/03/19 mg/325 mg] Lactobacillus Rhamnosus GG 1 cap PO DAILY capsule 03/03/19 [Culturelle] Midodrine [ProAmatine] 5 mg PO TID PRN tablet 03/03/19 Multivitamin W/Minerals [Theragran 1 tab PO DAILYWM tablet 03/03/19 M] polyethylene glycoL 3350 [Miralax] 17 gm PO DAILY packet 03/03/19 Lidocaine Ointment 5% [Xylocaine 1 applic TOP QID #35.44 gm 10/03/23 Ointment 5%] Valacyclovir HCl [Valtrex] 1,000 mg PO TID #21 tablet 10/03/23 - Allergies Allergies/Adverse Reactions: Allergies Allergy/AdvReac Type Severity Reaction Status Date / Time No Known Drug Allergies Allergy Verified 10/03/23 20:30 - Social History Does the pt smoke?: No Smoking Status: Never smoker Does the pt drink ETOH?: No Does the pt have substance abuse?: No - Immunizations Immunizations are current?: Yes - POLST Patient has POLST: No PD ED PE NORMAL - General General: Alert and oriented X 3, No acute distress, Well developed/nourished - HEENT HEENT: Atraumatic - Derm Derm: No: No rash (Blistering rash on the right anterior chest and shoulder C3 dermatome distribution that does not cross the midline. Some extension of the rash down the right Bicep) Results - Vitals Vitals: Oxygen O2 Source Room air PD Medical Decision Making - ED course Complexity details: d/w patient ED course: 33-year-old male presents emergency department for evaluation of a rash on his right anterior chest shoulder region in the C3 dermatomal distribution consistent with shingles. Patient is currently taking gabapentin. Will be started on valacyclovir 1 g 3 times daily for 1 week. I also prescribed lidocaine cream. Discussed the usual isolation precautions. Advised to follow- up with PCP. Patient would benefit from the shingles vaccine about 90 days from the original infection. Departure - Departure Disposition: 01 Home, Self Care Clinical Impression: Shingles Qualifiers: Herpes zoster complications: without complications Qualified Code(s): B02.9 - Zoster without complications Condition: Stable Instructions: ED Shingles Prescriptions: Valacyclovir HCl [Valtrex] 1,000 mg PO TID #21 tablet Lidocaine Ointment 5% [Xylocaine Ointment 5%] 1 applic TOP QID #35.44 gm Comments: Nikhil the rash that you have on your chest is shingles. This is a reactivation of the virus that causes chickenpox. Shingles rashes are painful often have the blistering and burning that you have. Treatment is best started within 48 to 72 hours but treatment at any point is indicated. I have sent a prescription for valacyclovir to the [facility] in [place]. You will take it 3 times a day for the next week. This rash is considered to be contagious until it fully scabs over. Anybody who has not had chickenpox or the shingles vaccine should use extreme caution when handling your linens or helping with your care. I have prescribed lidocaine ointment that can be placed over your rash 3-4 times a day. This will help with the pain. I would recommend that you obtain the shingles vaccine about 3 months after this rash has resolved. This will help prevent a reoccurrence of shingles in the future. Please discuss this ED visit with your primary care doctor.
[2023-10-03] MEDS ORDERED: valACYclovir 500 MG TABLET PO STA (20:31)
[2023-10-03 20:44] VITALS: BP 144/84; O2SAT 99
== END 2023-10-03 20:39 | disposition home or self-care (01) ==
LOC: EDUNIT# → ED 20:23
DX: B02.9 Zoster without complications (principal); Z79.899 Other long term (current) drug therapy
CPT/HCPCS: 99283; A9270

== ENCOUNTER 2023-10-03 20:48 | Outpatient (CLI) | payer MEDICAID | END 2023-10-03 20:49 | disposition home or self-care (01) | LOC: EMS 20:48 | PROVIDERS: ATTEND Registered Nurse | DX: B02.9 Zoster without complications (principal); G82.20 Paraplegia, unspecified | CPT/HCPCS: A0425; A0428 ==

== ENCOUNTER 2023-11-08 09:35 | Emergency (ER) | payer MEDICAID ==
[2023-11-08 11:33] LABS: BASOPHILS % (AUTO) 0.3 %; EOSINOPHILS # (AUTO) 0.1 10^3/uL (0.0-0.7); EOSINOPHILS % (AUTO) 0.8 %; HCT - HEMATOCRIT 42.4 % (42.0-52.0); HGB - HEMOGLOBIN 13.8 g/dL (14.0-18.0); LYMPHOCYTES # (AUTO) 1.2 10^3/uL (1.5-3.5); MEAN CORPUSCULAR HEMOGLOBIN 26.4 pg (27.0-31.0); MEAN CORPUSCULAR HGB CONC 32.5 g/dL (32.0-36.0); MEAN CORPUSCULAR VOLUME 81.1 fL (80.0-94.0); MEAN PLATELET VOLUME 9.8 fL (7.4-11.4); MONOCYTES # (AUTO) 0.7 10^3/uL (0.0-1.0); MONOCYTES % (AUTO) 11.4 %; NEUTROPHILS # (AUTO) 4.1 10^3/uL (1.5-6.6); NEUTROPHILS % (AUTO) 67.3 %; PLT - PLATELET COUNT 184 10^3/uL (130-450); RED BLOOD COUNT 5.23 10^6/uL (4.70-6.10); RED CELL DISTRIBUTION WIDTH 16.1 % (12.0-15.0); WHITE BLOOD COUNT 6.1 x10^3/uL (4.8-10.8)
--- NOTE | 2023-11-08 11:38 | ED Physician Documentation ---
History of Present Illness - Stated complaint Stated Complaint: WEIGHTLOSS - Chief complaint Chief Complaint: General - History obtained from History obtained from: Patient - Additonal information Additional information: 33-year-old gentleman with chronic paraplegia due to a spinal cord tumor, depression and poor sleep had his Remeron stopped on September 01. Since then he has been more depressed but without SI and not eating well. He is lost weight and would like to restart the Remeron. PD PAST MEDICAL HISTORY - Past Medical History Past Medical History: Yes Cardiovascular: None Respiratory: None Endocrine/Autoimmune: None GI: None : Incontinence, Chronic bladder infection HEENT: None Psych: Depression, Anxiety, Post traumatic stress disorder Musculoskeletal: Paraplegia, Scoliosis, Chronic back pain Derm: Other drug resistant infections - Past Surgical History Past Surgical History: Yes Ortho: Spine surgery, Other - Present Medications Home Medications: Ambulatory Orders Medication Instructions Recorded Confirmed Ibuprofen 400 mg PO DAILY 02/25/19 02/25/19 Acetaminophen [Tylenol] 650 mg PO Q4HR PRN tablet 03/03/19 Ertapenem [INVanz] 1 gm IV Q24H #30 vial 03/03/19 Ferrous Sulfate 325 mg PO TIDWM #90 tablet 03/03/19 HYDROcodone/ACET 10/325 [A[place] 10 1 tab PO Q4HR PRN #60 tablet 03/03/19 mg/325 mg] Lactobacillus Rhamnosus GG 1 cap PO DAILY capsule 03/03/19 [Culturelle] Midodrine [ProAmatine] 5 mg PO TID PRN tablet 03/03/19 Multivitamin W/Minerals [Theragran 1 tab PO DAILYWM tablet 03/03/19 M] polyethylene glycoL 3350 [Miralax] 17 gm PO DAILY packet 03/03/19 Lidocaine Ointment 5% [Xylocaine 1 applic TOP QID #35.44 gm 10/03/23 Ointment 5%] Valacyclovir HCl [Valtrex] 1,000 mg PO TID #21 tablet 10/03/23 Mirtazapine [Remeron] 15 mg PO HS #60 tablet 11/08/23 - Allergies Allergies/Adverse Reactions: Allergies Allergy/AdvReac Type Severity Reaction Status Date / Time No Known Drug Allergies Allergy Verified 10/03/23 20:30 - Social History Does the pt smoke?: No Smoking Status: Never smoker Does the pt drink ETOH?: No Does the pt have substance abuse?: No - Immunizations Immunizations are current?: Yes - POLST Patient has POLST: No PD ED PE NORMAL - Vitals Vital signs reviewed: Yes - General General: Alert and oriented X 3, Other (Appears well, in a wheelchair) - Neuro Neuro: Alert and oriented X 3, Normal speech - Psych Psych: Normal mood, Normal affect Results - Vitals Vitals: Vital Signs - 24 hr 11/08/23 11/08/23 09:45 11:43 Temperature 36.7 C 36.6 C Heart Rate 103 H 90 Respiratory 18 17 Rate Blood Pressure 134/76 H 133/75 H O2 Saturation 97 98 Oxygen O2 Source Room air - Labs Labs: Laboratory Tests 11/08/23 11/08/23 11:29 11:29 WBC 6.1 RBC 5.23 Hgb 13.8 L Hct 42.4 MCV 81.1 MCH 26.4 L MCHC 32.5 RDW 16.1 H Plt Count 184 MPV 9.8 Neut # (Auto) 4.1 Lymph # (Auto) 1.2 L Potter # (Auto) 0.7 Eos # (Auto) 0.1 Baso # (Auto) 0.0 Absolute Nucleated RBC 0.00 Nucleated RBC % 0.0 Sodium Cancelled Potassium Cancelled Chloride Cancelled Carbon Dioxide Cancelled Anion Gap Cancelled BUN Cancelled Creatinine Cancelled Estimated GFR (MDRD) Cancelled Glucose Cancelled Calcium Cancelled Magnesium Cancelled Total Bilirubin Cancelled AST Cancelled ALT Cancelled Alkaline Phosphatase Cancelled Total Protein Cancelled Albumin Cancelled Globulin Cancelled Albumin/Globulin Ratio Cancelled Lipase Cancelled TSH Cancelled PD Medical Decision Making - ED course ED course: 33-year-old gentleman with poor follow-up, moved back to the eye and recently no PCP would like to restart Remeron prescription and is given. Departure - Departure Disposition: 01 Home, Self Care Clinical Impression: Poor appetite Depressed Qualifiers: Depression Type: major depressive disorder Major depression recurrence: unspecified whether recurrent Active/Remission status: remission status unspecified Qualified Code(s): F32.9 - Major depressive disorder, single episode, unspecified Condition: Good Instructions: ED Depression Prescriptions: Mirtazapine [Remeron] 15 mg PO HS #60 tablet Comments: Call your doctor to arrange a follow-up appointment, make the next available appointment. In the interim, return anytime if worse or if new symptoms develop. Forms: PCP List Discharge Date/Time: 11/08/23 11:43
[2023-11-08 11:50] VITALS: BP 133/75; O2SAT 98
== END 2023-11-08 11:43 | disposition home or self-care (01) ==
LOC: ED 09:35
DX: F32.9 Major depressive disorder, single episode, unspecified (principal); R63.0 Anorexia
CPT/HCPCS: 36415; 80053; 83690; 83735; 84443; 85025; 99282; 99283

== ENCOUNTER 2024-03-10 13:22 | Outpatient (CLI) | payer MEDICAID | END 2024-03-10 23:59 | disposition critical access hospital (66) | LOC: EMS 13:22 | DX: R31.0 Gross hematuria (principal); G43.909 Migraine, unspecified, not intractable, without status migrainosus | CPT/HCPCS: A0425; A0429; A0999 ==

== ENCOUNTER 2024-03-10 13:40 | Emergency (ER) | payer MEDICAID ==
--- NOTE | 2024-03-10 13:55 | ED Physician Documentation ---
PD HPI MALE - Stated complaint Stated Complaint: - Chief complaint Chief Complaint: Abd Pain - History obtained from History obtained from: Patient, EMS - History of Present Illness Timing - onset: Today, Last night Timing - duration: Days (1) Timing - details: Abrupt onset, Still present Associated symptoms: Hematuria (with clots, grossly bloody luz marina to cranberry juice but some clots as well. Pt does not feel that the urine is blocked from egress.) PD HPI MALE CONTRIB FACTORS: No: Sexually active Similar symptoms before: Has not had sx before (Has had UTIs in the past but not gross hematuria. 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 Does not have sensation of urination. Prior UTIs clinically were cloudy urine or general illness. He is not feeling feverish nor generally ill.), Other (no prior kidney stones. previously would intermittently self-cath, but currently is able to void by gentle firm pressure on suprapubic area.) Recently seen: Clinic (went to walk in clinic and was referred to ER by EMS for further evaluation. I did not receive call from clinic, so no warm handoff info. Pt does not seem ill/septic.) Review of Systems Constitutional: denies: Fever, Myalgias GI: denies: Abdominal Pain, Nausea, Vomiting Musculoskeletal: reports: Back pain (chronic back pain due to prior spine problems and surgeries. 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.) Endocrine/Autoimmune: None GI: None : Incontinence, Chronic bladder infection HEENT: None Psych: Depression, Anxiety, Post traumatic stress disorder Musculoskeletal: Paraplegia, Scoliosis, Chronic back pain Derm: Other drug resistant infections - Past Surgical History Past Surgical History: Yes Ortho: Spine surgery, Other - Present Medications Home Medications: Ambulatory Orders Medication Instructions Recorded Confirmed Ferrous Sulfate 325 mg PO TIDWM #90 tablet 03/03/19 03/10/24 Mirtazapine [Remeron] 15 mg PO HS #60 tablet 11/08/23 03/10/24 Atorvastatin [Lipitor] 10 mg PO DAILY 03/10/24 03/10/24 Cholecalciferol [Vitamin D3] 25 mcg PO DAILY 03/10/24 03/10/24 Cyclobenzaprine [Flexeril] 10 mg PO TID PRN 03/10/24 03/10/24 Escitalopram [Lexapro] 10 mg PO DAILY 03/10/24 03/10/24 Famotidine [Pepcid] 20 mg PO BID 03/10/24 03/10/24 Gabapentin [Gabapentin ER] 300 mg PO DAILY 03/10/24 03/10/24 Losartan [Cozaar] 100 mg PO DAILY 03/10/24 03/10/24 Metoprolol Succinate [Toprol Xl] 25 mg PO DAILY 03/10/24 03/10/24 cephALEXin [Keflex] 500 mg PO QID #28 cap 03/10/24 traZODone [Desyrel] 50 mg PO HS 03/10/24 03/10/24 - Allergies Allergies/Adverse Reactions: Allergies Allergy/AdvReac Type Severity Reaction Status Date / Time No Known Drug Allergies Allergy Verified 03/10/24 13:45 - Social History Does the pt smoke?: No Smoking Status: Never smoker Does the pt drink ETOH?: No Does the pt have substance abuse?: No - Immunizations Immunizations are current?: Yes - POLST Patient has POLST: No PD ED PE NORMAL - Vitals Vital signs reviewed: Yes - General General: Alert and oriented X 3, No acute distress, Well developed/nourished - Cardiac Cardiac: RRR, No murmur - Respiratory Respiratory: Clear bilaterally - Abdomen Abdomen: Normal bowel sounds, Soft, Non tender, Non distended, Other (no sensation from below umbilicus/waistline down. He does not feel palpation of the bladder. Bladder scanner showed small amount approx 165 ml. ) - Back Back: No CVA TTP - Derm Derm: Normal color, Warm and dry - Extremities Extremities: Other (atrophy of leg muscles c/w chronic paraplegia. ) Results - Vitals Vitals: Vital Signs - 24 hr 03/10/24 03/10/24 03/10/24 13:45 16:11 16:44 Temperature 36.9 C 36.8 C 36.1 C L Heart Rate 97 79 73 Respiratory 14 15 16 Rate Blood Pressure 114/85 H 108/86 H 111/82 H O2 Saturation 97 98 100 Oxygen O2 Source Room air - Labs Labs: Laboratory Tests 03/10/24 03/10/24 03/10/24 14:03 14:03 14:03 WBC 8.1 RBC 5.19 Hgb 13.8 L Hct 42.9 MCV 82.7 MCH 26.6 L MCHC 32.2 RDW 14.7 Plt Count 244 MPV 9.6 Neut # (Auto) 6.4 Lymph # (Auto) 1.2 L [place] # (Auto) 0.3 Eos # (Auto) 0.0 Baso # (Auto) 0.0 Absolute Nucleated RBC 0.00 Nucleated RBC % 0.0 Sodium 138 Potassium 3.9 Chloride 107 Carbon Dioxide 24 Anion Gap 7.0 BUN 19 Creatinine 0.5 L Estimated GFR (MDRD) 229 Glucose 109 H Lactic Acid 0.6 Calcium 9.5 Magnesium 1.7 Total Bilirubin 0.4 AST 12 ALT 12 Alkaline Phosphatase 59 Total Protein 7.2 Albumin 4.5 Globulin 2.7 Albumin/Globulin Ratio 1.7 Lipase 14 Urine Color Urine Clarity Urine pH Ur Specific [place] Urine Protein Urine Glucose (UA) Urine Ketones Urine Occult Blood Urine Nitrite Urine Bilirubin Urine Urobilinogen Ur Leukocyte Esterase Urine RBC Urine WBC Ur Squamous Epith Cells Urine Bacteria Ur Microscopic Review Urine Culture Comments 03/10/24 15:16 WBC RBC Hgb Hct MCV MCH MCHC RDW Plt Count MPV Neut # (Auto) Lymph # (Auto) [place] # (Auto) Eos # (Auto) Baso # (Auto) Absolute Nucleated RBC Nucleated RBC % Sodium Potassium Chloride Carbon Dioxide Anion Gap BUN Creatinine Estimated GFR (MDRD) Glucose Lactic Acid Calcium Magnesium Total Bilirubin AST ALT Alkaline Phosphatase Total Protein Albumin Globulin Albumin/Globulin Ratio Lipase Urine Color RED/BLOODY Urine Clarity TURBID Urine pH 7.5 Ur Specific [place] 1.020 Urine Protein >=300 H Urine Glucose (UA) NEGATIVE Urine Ketones TRACE Urine Occult Blood LARGE H Urine Nitrite POSITIVE H Urine Bilirubin SMALL H Urine Urobilinogen 2 H Ur Leukocyte Esterase MODERATE H Urine RBC TNTC H Urine WBC 11-25 H Ur Squamous Epith Cells RARE Squamous Urine Bacteria Moderate H Ur Microscopic Review INDICATED Urine Culture Comments INDICATED PD Medical Decision Making - ED course Complexity details: considered differential ED course: The patient noted some blood in his urine with some clots as well. 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 He does get around quite mobile with wheelchair. He is a resident at [facility]. He noted blood in his urine with some clots starting last night and continued today. He normally does pressure on the bladder to get urine to come out and is typically clear. Previously had done intermittent cathing but currently can get urine out by just pressure on the bladder. He noticed some mild back pain but essentially has poor sensation to no sensation to the pelvis. No feeling of fever nor lightheadedness or nausea. Has had UTIs in the past but typically not with notable blood. WBC is normal. Chem panel showing normal renal function and lytes. Glucose is normal range as well. Lactate 0.6. No indications of sepsis. Urine is sign ificantly positive for infection as well as gross blood. Can treat as UTI with hematuria. Does not sound like stones. Given the positive infection, I did not feel imaging neded either. Pt in agreement. Departure - Departure Disposition: 01 Home, Self Care Clinical Impression: Hematuria, UTI (urinary tract infection), Paraplegia Condition: Stable Record reviewed to determine appropriate education?: Yes Instructions: ED UTI Cystitis Male Prescriptions: cephALEXin [Keflex] 500 mg PO QID #28 cap Comments: The urine sample obtained does show signs of infection along with the large amount of blood. Presume the inside of the bladder is raw enough to have bleeding related to the infection. Treating the infection should allow the rawness to improve and heal and the bleeding to stop. I would anticipate decreasing blood in the urine over the next 2 to 3 days as this improves. Return if it seems like you are unable to get urine out as the blood can form larger clots and block the out passage. Return if you have fevers, generalized illness, lightheadedness or sweats or low blood pressure as that can be a sign of worsening infection or urinary retention and its effect on the autonomic nervous system as you will feel the typical symptoms because of your paraplegia. Stay well-hydrated. Tylenol every 4-6 hours if needed for aches or fevers that are mild. Cephalexin antibiotic as prescribed. I sent it to your [facility] pharmacy. Recheck if not improving well over the next several days and resolved by 3 to 5 days. Forms: PCP List Discharge Date/Time: 03/10/24 16:44
[2024-03-10] MEDS: SODIUM CHLORIDE 0.9% 1,000 ML IV STA (14:00)
[2024-03-10] MEDS: KETOROLAC 15 MG/ML VIAL IVP STA (14:06)
[2024-03-10] MEDS: SUMAtriptan 6 MG/0.5 ML VIAL SUBQ STA (14:06)
[2024-03-10 14:09] LABS: BASOPHILS % (AUTO) 0.4 %; EOSINOPHILS % (AUTO) 0.5 %; HCT - HEMATOCRIT 42.9 % (42.0-52.0); HGB - HEMOGLOBIN 13.8 g/dL (14.0-18.0); LYMPHOCYTES # (AUTO) 1.2 10^3/uL (1.5-3.5); LYMPHOCYTES % (AUTO) 14.7 %; MEAN CORPUSCULAR HEMOGLOBIN 26.6 pg (27.0-31.0); MEAN CORPUSCULAR HGB CONC 32.2 g/dL (32.0-36.0); MEAN CORPUSCULAR VOLUME 82.7 fL (80.0-94.0); MEAN PLATELET VOLUME 9.6 fL (7.4-11.4); MONOCYTES # (AUTO) 0.3 10^3/uL (0.0-1.0); MONOCYTES % (AUTO) 4.2 %; NEUTROPHILS # (AUTO) 6.4 10^3/uL (1.5-6.6); NEUTROPHILS % (AUTO) 79.8 %; PLT - PLATELET COUNT 244 10^3/uL (130-450); RED BLOOD COUNT 5.19 10^6/uL (4.70-6.10); RED CELL DISTRIBUTION WIDTH 14.7 % (12.0-15.0); WHITE BLOOD COUNT 8.1 x10^3/uL (4.8-10.8)
[2024-03-10 14:16] LABS: MAGNESIUM 1.7 mg/dL (1.7-2.3)
[2024-03-10 14:23] LABS: ALBUMIN 4.5 g/dL (3.2-5.5); ALBUMIN/GLOBULIN RATIO 1.7 (1.0-2.2); BILIRUBIN,TOTAL 0.4 mg/dL (0.2-1.0); CALCIUM 9.5 mg/dL (8.5-10.3); CREATININE 0.5 mg/dL (0.6-1.3); POTASSIUM 3.9 mmol/L (3.5-4.5); TOTAL PROTEIN 7.2 g/dL (6.4-8.9)
[2024-03-10] MEDS: cefTRIAXone 1 GM VIAL IVP STA (15:27)
[2024-03-10 15:35] LABS: BILIRUBIN,URINE SMALL (NEGATIVE); GLUCOSE, URINE (UA) NEGATIVE (NEGATIVE); KETONES,URINE (UA) TRACE mg/dL (NEGATIVE); LEUKOCYTE ESTERASE, URINE MODERATE (NEGATIVE); NITRITE,URINE POSITIVE (NEGATIVE); OCCULT BLOOD,URINE LARGE (NEGATIVE); PH,URINE 7.5 PH (5.0-7.5); PROTEIN,URINE >=300 mg/dL (NEGATIVE); UROBILINOGEN,URINE 2 E.U./dL (NORMAL)
[2024-03-10 15:37] LABS: CLARITY,URINE TURBID (CLEAR)
[2024-03-10 15:38] LABS: BACTERIA,URINE Moderate /HPF (None Seen); RBC,URINE TNTC /HPF (0-5); SQUAMOUS EPITHELIAL CELL,UR RARE Squamous (<= Few)
[2024-03-10 16:51] VITALS: BP 111/82; O2SAT 100
== END 2024-03-10 16:44 | disposition home or self-care (01) ==
LOC: EDUNIT# → ED 13:40
DX: N39.0 Urinary tract infection, site not specified (principal); G82.20 Paraplegia, unspecified
CPT/HCPCS: 36415; 51701; 80053; 81001; 81003; 83605; 83690; 83735; 85025; 87077; 87086; 87181; 99284

== ENCOUNTER 2024-03-31 08:00 | Outpatient (CLI) | payer MEDICAID | END 2024-03-31 23:59 | disposition home or self-care (01) | LOC: LAB 08:00 | PROVIDERS: ATTEND Urology | DX: N30.90 Cystitis, unspecified without hematuria (principal) | CPT/HCPCS: 87077; 87086; 87181 ==

== ENCOUNTER 2024-06-05 10:04 | Day surgery (SDC) | payer MEDICAID ==
[~2024-06-05 10:04] MED LIST: ceFAZolin 2 GM VIAL ONE
[2024-06-05] MEDS: LACTATED RINGERS 1,000 ML IV ONE (10:53)
[2024-06-05] MEDS ORDERED: MIDAZOLAM 2 MG/2 ML VIAL ONE (13:19)
--- NOTE | 2024-06-05 13:29 | ANESTHESIA ---
Pre-Anesthesia VS, & Labs - Diagnosis bladder lesion - Procedure cysto with bladder biopsy Vital Signs: Temp Pulse Resp BP Pulse Ox O2 Flow Rate 36.7 C 90 15 131/79 H 100 06/05/24 11:07 06/05/24 11:07 06/05/24 11:07 06/05/24 11:07 06/05/24 11:07 Height: 5 ft 7 in Weight (kg): 63.05 kg Body Mass Index: 21.7 BMI Classification: Normal - NPO >8 hours Home Medications and Allergies Home Medications: Ambulatory Orders Acetaminophen [Tylenol] 500 mg PO Q4-6H 05/23/24 Ferrous Sulfate 325 mg PO DAILY 05/23/24 Ibuprofen [Motrin] 600 mg PO Q6H PRN 05/23/24 Sumatriptan Succinate [Imitrex] 50 mg PO DAILY 05/23/24 Cholecalciferol [Vitamin D3] 50 mcg PO DAILY 03/10/24 Gabapentin [Gabapentin ER] 300 mg PO TID 03/10/24 Losartan [Cozaar] 100 mg PO DAILY 03/10/24 Metoprolol Succinate [Toprol Xl] 25 mg PO DAILY 03/10/24 traZODone [Desyrel] 50 mg PO HS 03/10/24 Acetaminophen [Tylenol] 500 mg PO Q4-6H 05/23/24 Ferrous Sulfate 325 mg PO DAILY 05/23/24 Ibuprofen [Motrin] 600 mg PO Q6H PRN 05/23/24 Sumatriptan Succinate [Imitrex] 50 mg PO DAILY 05/23/24 Allergies/Adverse Reactions: Allergies Allergy/AdvReac Type Severity Reaction Status Date / Time No Known Drug Allergies Allergy Verified 03/10/24 13:45 Anes History & Medical History - Anesthetic History Anesthesia Complications: reports: No previous complications Family history of Anesthesia Complications: Denies Family history of Malignant Hyperthermia: Denies - Medical History Cardiovascular: reports: None Pulmonary: reports: None Gastrointestinal: reports: None Urinary: reports: Incontinence, Chronic bladder infection Neuro: reports: Other (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 Surgeries x 6. T12 paraplegic.) Musculoskeletal: reports: Paraplegia, Scoliosis, Chronic back pain Endocrine/Autoimmune: reports: None Blood Disorders: reports: Anemia Skin: reports: Other drug resistant infections, Other Smoking Status: Never smoker Psychosocial: reports: No issues indicated History of Cancer?: No - Surgical History Orthopedic: reports: Spine surgery, Other Dermatologic: reports: Skin grafts, Debridement Exam General: Alert, Oriented x3, Cooperative Dental: WNL Mouth Openin Fingerbreadth Neck Mobility: Normal Mallampati classification: I Thyromental Distance: 4-6 cm Respiratory: Lungs clear Cardiovascular: Regular rate Abdomen: Normal bowel sounds Neurological: Other (paraplegic) Mental/Cognitive Status: Alert/Oriented X3 Cognitive Status: Within normal limits Plan Anesthesia Type: General Consent for Procedure(s) Verified and Reviewed: Yes Code Status: Attempt Resuscitation ASA classification: 2-Mild systemic disease Is this case an emergency?: No
[2024-06-05] MEDS ORDERED: HYDROmorphone 0.5 MG/0.5 ML SYRINGE IVP PRN (13:36)
[2024-06-05] MEDS ORDERED: NALOXONE 0.4 MG/ML VIAL IVP PRN (13:36)
[2024-06-05] MEDS ORDERED: ATROPINE ABBOJECT 1 MG/10 ML SYRINGE IVP PRN (13:36)
[2024-06-05] MEDS ORDERED: MORPHINE 2 MG/ML CARPUJECT IVP PRN (13:36)
[2024-06-05] MEDS ORDERED: ONDANSETRON 4 MG/2 ML VIAL IVP PRN ×2 (13:36→14:31)
[2024-06-05] MEDS ORDERED: fentaNYL 100 MCG/2 ML VIAL IVP PRN (13:36)
[2024-06-05] MEDS ORDERED: ePHEDrine 50 MG/ML VIAL IVP PRN (13:36)
[2024-06-05] MEDS ORDERED: PROPOFOL 200 MG/20 ML VIAL IVP ONE (13:38)
[2024-06-05] MEDS ORDERED: LIDOCAINE 2% URO-JET 5 ML SYRINGE UR ONE (13:44)
[2024-06-05] MEDS ORDERED: fentaNYL 100 MCG/2 ML VIAL ONE (13:58)
[2024-06-05] MEDS ORDERED: LIDOCAINE-PF 2% 10 ML AMP SUBQ ONE (14:00)
[2024-06-05] MEDS ORDERED: LACTATED RINGERS 1,000 ML IV SCH (14:00)
--- NOTE | 2024-06-05 14:35 | Discharge Plan ---
Discharge Plan Problem Reviewed?: Yes Disposition: Home, Self Care Condition: Good Diet: Regular Activity Restrictions: No Restrictions Shower Restrictions: No Driving Restrictions: No Instruction Topics: Catheter Bag Urinary Empty Clean, Huang Catheter Remove Additional Instructions or Follow Up instructions: Please remove your catheter as instructed on Wednesday, June 09 in the morning You have a follow-up with Dr. Stone on June 14 at 10:30 AM. Please arrive at least 15 minutes early No Smoking: If you smoke, Please STOP! Call for help. Follow-up with: Romaine Stone MD [Provider Admit Priv/Credential] -
[2024-06-05] MEDS: LACTATED RINGERS 300 ML IV ONE ×2 (14:36→15:48)
--- NOTE | 2024-06-05 14:38 | OPERATIVE REPORT ---
Operative Report - General Procedure Date: 06/05/24 Planned Procedure: Cystoscopy, bladder biopsy Pre-Op Diagnosis: Bladder lesion Procedure Performed: Cystoscopy, bladder biopsy Post Op Diagnosis: Bladder lesion - Procedure Note Primary Surgeon: Chase Anesthesia Provider: ELLY Francisco Anesthesia Technique: MAC Pathology: bladder biopsy Estimated Blood Loss (mL): 1 Complications: none - Other Other Information/Narrative: After informed consent was obtained the patient was brought to the OR and laid the supine position. The patient was anesthetized per anesthesia protocols and prepped draped in usual sterile fashion in the dorsolithotomy position. A formal timeout was performed confirming the patient, procedure and laterality. A 22 [place] cystoscope was advanced easily into urinary bladder. He was noted to have a normal urethra. His prostate was wide open and short. His bladder had 1-2+ trabeculations. He had some debris in the bladder which was evacuated. His bladder had patchy erythema in different areas of the bladder including the posterior wall and notably some raised induration on the left lateral wall. Using a biopsy We biopsied these 2 areas and send them for analysis. Cautery was used for hemostasis with the monopolar setting. There was excellent hemostasis. A 22 [place] three-way Huang catheter was placed with gentle irrigation. The patient tolerated the procedure well. There were no complications The plan will be to clamp this irrigation and send him home with a catheter. He will remove the catheter on Wednesday. He will follow-up next week.
--- NOTE | 2024-06-05 14:45 | ANESTHESIA POST OP EVALUATION ---
Anesthesia Post Eval - Post Anesthesia Eval Vitals: Last Vital Signs Temp 36.7 C 06/05/24 11:07 Pulse 90 06/05/24 11:07 Resp 15 06/05/24 11:07 BP 131/79 H 06/05/24 11:07 Pulse Ox 100 06/05/24 11:07 O2 Flow Rate CV Function Including HR & BP: Stable Pain Control: Satisfactory Nausea & Vomiting: Negative Mental Status: Baseline Respiratory Status: Airway Patent Hydration Status: Satisfactory Anesthesia Complications: None
[2024-06-05 14:48] VITALS: BP 124/85; O2SAT 96
== END 2024-06-05 10:05 | disposition home or self-care (01) ==
LOC: SDS 10:04
PROVIDERS: ATTEND Urology
PROC: 0TBB8ZX Excision of Bladder, Via Natural or Artificial Opening Endoscopic, Diagnostic (ICD-10-PCS; principal; 2024-06-05 12:45)
DX: N32.9 Bladder disorder, unspecified (principal); N30.90 Cystitis, unspecified without hematuria; B96.89 Other specified bacterial agents as the cause of diseases classified elsewhere; G82.20 Paraplegia, unspecified
CPT/HCPCS: 52204; C1758; J7120